=== PATIENT | female | born 1935 | race Caucasian/White ===

== ENCOUNTER 2025-06-08 08:21 | Inpatient (IN) | payer MEDICARE ==
[~2025-06-08] VITALS: Ht 152.4 cm; Wt 37.2 kg
--- NOTE | 2025-06-08 08:51 | NUR ---
PT TO CT
[2025-06-08 09:12] LABS: IMMATURE GRANULOCYTE ABSOLUTE 0.07 K/uL (0-1); NUCLEATED RED BLOOD CELLS 0.0 % (0.0-0.19); PLATELET COUNT (AUTO) 248 K/uL (130-400); RED BLOOD CELL COUNT(AUTO) 4.27 MIL/uL (4.00-5.50); RED CELL DISTRIBUTION WIDTH 12.1 % (11.0-15.5); WHITE BLOOD COUNT (AUTO) 13.3 K/uL (4.8-10.8)
[2025-06-08 09:20] LABS: CREATININE 1.3 mg/dL (0.5-1.0); GLOMERULAR FILTR. RATE CALC 39.0 mL/min (>90); GLUCOSE,RANDOM 202.0 mg/dL (70-105); SODIUM SERUM 137.0 mmol/L (136-145); UREA NITROGEN, BLOOD 21.0 mg/dL (7-18)
[2025-06-08 09:21] LABS: INR 1.04 (0.85-1.15)
[2025-06-08 09:25] LABS: CREATINE KINASE, TOTAL 78.0 U/L (21-232)
--- NOTE | 2025-06-08 09:38 | HMCIMG ---
EXAM: CT Head Without IV contrast. CLINICAL HISTORY: fall TECHNIQUE: Axial computed tomography images of the head/brain without intravenous contrast. COMPARISON: None provided. FINDINGS: BRAIN: White matter hypodensities left parietal lobe, asymmetric, likely representing chronic small vessel ischemic disease. Velazquez white matter differentiation is preserved in this region. No evidence of intracranial hemorrhage, midline shift or parenchymal herniation. VENTRICLES: No hydrocephalus. ORBITS: The orbits are unremarkable. SINUSES AND MASTOIDS: The paranasal sinuses and mastoid air cells are clear. BONES: No fracture. SOFT TISSUES: Unremarkable. IMPRESSION: No evidence of intracranial hemorrhage. White matter hypodensities left parietal lobe, asymmetric, likely representing chronic small vessel ischemic disease. Velazquez white matter differentiation is preserved in this region. /[place]
--- NOTE | 2025-06-08 09:48 | NUR ---
PATIENT'S NIECE JUST PROVIDED DR GALDAMEZ PATIENT'S MEDICATION LIST THAT HAS PLAVIX ON IT.NIECE CONFIRMED PATIENT TAKES THE MEDIACTION, HOWEVER IT WAS NOT MENTIONED TO EMS OR TRIAGE.
--- NOTE | 2025-06-08 10:14 | HMCIMG ---
EXAM: CR left Hip, 3 View. CLINICAL HISTORY: fall COMPARISON: None provided. FINDINGS: BONES: Comminuted left intertrochanteric fracture JOINTS: No dislocation. The joint spaces are normal. SOFT TISSUES: The soft tissues are unremarkable. IMPRESSION: Comminuted left intertrochanteric fracture /[place]
--- NOTE | 2025-06-08 10:15 | HMCIMG ---
EXAM: CT Pelvis without IV contrast CLINICAL HISTORY: fall TECHNIQUE: Axial computed tomography images of the pelvis without intravenous contrast. CONTRAST: without intravenous contrast. COMPARISON: None provided. FINDINGS: PERITONEUM: No free fluid. No free air. LYMPH NODES: No lymphadenopathy is evident. REPRODUCTIVE: Unremarkable as visualized. VASCULATURE: No evidence of abdominal aortic aneurysm. BONES: Comminuted minimally displaced left intertrochanteric fracture. IMPRESSION: Comminuted minimally displaced left intertrochanteric fracture. Moderate stool burden throughout the colon. /[place]
[2025-06-08] MEDS ORDERED: GLUCAGON 1MG KIT 1 MG ML IM PRN (10:30)
[2025-06-08] MEDS ORDERED: DEXTROSE 50%-WATER 50 ML DISP.SYRIN IV PRN (10:30)
[2025-06-08 10:43] VITALS: RESP 18; O2SAT 98
[2025-06-08 10:45] LABS: ASPARTATE AMINOTRANSFERASE 30.0 U/L (10-37); TOTAL PROTEIN, SERUM 7.4 g/dL (6.0-8.3)
--- NOTE | 2025-06-08 11:12 | ERN ---
ED Note History of Present Illness Stated Complaint: S/P FALL, LEFT HIP FRACTURE, FRAILT Chief Complaint: Mechanical Fall Time Seen by MD: 08:28 Dictation: 89-year-old female presenting to the emergency department for mechanical fall and left hip pain unable to ambulate transported by EMS. Patient denies any loss of consciousness no chest pain or shortness a breath. Allergies: Coded Allergies: No Known Drug Allergies (Unverified Allergy, Unknown, 06/08/25) Past Medical History Past Medical History: CVA, Hypertension Surgical History: None Review of System Dictation Constitutional: Negative for fever,chills, and weight loss Eyes: Negative for injury, pain,redness, and discharge ENT: Negative for injury,pain or swelling Cardiovascular: Negative for chest pain, palpitations, and edema Respiratory: Negative for shortness of breath, cough, and wheezing, Abdomen/GI: Negative for abdominal pain, nausea, vomiting, diarrhea, and constipation Back: Negative for injury and pain : Negative for injury, bleeding and discharge MS/Extremity: Per HPI Psych: Negative for suicide ideation, homicidal ideation, and hallucinations Initial Vital Sign VS Vital Signs Date Time Temp Pulse Resp B/P (MAP) Pulse Ox O2 Delivery O2 Flow Rate FiO2 06/08/25 08:27 97.9 102 16 152/78 98 0 06/08/25 09:45 Room Air* 21 Physical Exam Dictation General: awake, alert uncomfortable Head/Face: Normocephalic, atraumatic Eyes: PERRL, EOMI, vision at baseline ENT: oral cavity clear, TMs clear, no signs of infection Neck: Trachea midline, supple, no nuchal rigidity Cardiovascular: RRR, normal S1/S2, No MRGs, no JVD Respiratory: CTAB, no respiratory distress, No rales or wheezes Abdomen: Soft, non-tender, non-distended, normal bowel sounds, no guarding or rebound. Skin: Warm, dry, normal turgor, no rash MS/Extremity: Pulses equal, no cyanosis, neurovascular intact, left hip tenderness to palpation unable to range Neuro: COAx4, GCS 15, strength 5/5, CN 2-12 intact, normal cerebellar exam, normal gait, Psych: Normal behavior, mood, and affect normal Results (Laboratory/Radiology) Laboratory/Radiology Laboratory Tests Test 06/08/25 08:45 White Blood Count 13.3 K/uL (4.8-10.8) H Red Blood Count 4.27 MIL/uL (4.00-5.50) Hemoglobin 13.6 g/dL (12.0-16.0) Hematocrit 41.6 % (36-48) Mean Corpuscular Volume 97.4 fL (79-99) Mean Corpuscular Hemoglobin 31.9 pg (27.0-33.0) Mean Corpuscular Hemoglobin Concent 32.7 g/dL (32.0-36.0) Red Cell Distribution Width 12.1 % (11.0-15.5) Platelet Count 248 K/uL (130-400) Mean Platelet Volume 11.2 fL (7.5-10.5) H Immature Granulocyte % (Auto) 0.5 % (0-1) Neutrophils (%) (Auto) 79.8 % (40.0-77.0) H Lymphocytes (%) (Auto) 10.2 % (21.0-51.0) L Monocytes (%) (Auto) 7.0 % (3.0-13.0) Eosinophils (%) (Auto) 1.7 % (0.0-8.0) Basophils (%) (Auto) 0.8 % (0.0-5.0) Neutrophils # (Auto) 10.6 K/uL (1.8-7.7) H Lymphocytes # (Auto) 1.4 K/uL (1.0-4.8) Monocytes # (Auto) 0.9 K/uL (0.1-1.0) Eosinophils # (Auto) 0.22 K/uL (0.00-0.70) Basophils # (Auto) 0.10 K/uL (0.00-0.20) Absolute Immature Granulocyte (auto 0.07 K/uL (0-1) Nucleated Red Blood Cells 0.0 % (0.0-0.19) Prothrombin Time 11.0 SEC (9.6-11.6) Prothromb Time International Ratio 1.04 (0.85-1.15) Activated Partial Thromboplast Time 22.5 SEC (26.3-35.5) L Sodium Level 137 mmol/L (136-145) Potassium Level 4.7 mmol/L (3.5-5.1) Chloride Level 103 mmol/L (101-111) Carbon Dioxide Level 26 mmol/L (21-32) Blood Urea Nitrogen 21 mg/dL (7-18) H Creatinine 1.3 mg/dL (0.5-1.0) H Glomerular Filtration Rate Calc 39 mL/min (>90) Random Glucose 202 mg/dL (70-105) H Hemoglobin A1c 6.7 % (4.0-6.0) H Estimated Average Glucose (eAG) 146 mg/dL (70-126) H Total Calcium 9.5 mg/dL (8.5-10.1) Magnesium Level 1.50 mg/dL (1.80-2.40) L Total Bilirubin 0.6 mg/dL (0.2-1.0) Direct Bilirubin 0.2 mg/dL (0.0-0.3) Aspartate Amino Transf (AST/SGOT) 30 U/L (10-37) Alanine Aminotransferase (ALT/SGPT) 25 U/L (12-78) Alkaline Phosphatase 68 U/L (50-136) Total Creatine Kinase 78 U/L (21-232) Troponin I High Sensitivity 36 ng/L (4-50) B-Type Natriuretic Peptide 105 pg/mL (0-100) H Total Protein 7.4 g/dL (6.0-8.3) Albumin 4.1 g/dL (3.5-5.0) Thyroid Stimulating Hormone (TSH) 4.04 uIU/mL (0.36-3.74) H Labs Reviewed?: Yes EKG: (+) NSR, (+) rhythm, (+) nonspecific ST T wave chg, (+) abnormal Q waves ED Course ED Course Orders Procedure Category Date Status Time 12 Lead Ekg Tracing- EKG 06/08/25 Logged Technical 08:29 Basic Metabolic Panel LAB 06/08/25 Complete 08: Cbc With Differential LAB 06/08/25 Complete 08: Pt And Ptt LAB 06/08/25 Complete 08: Troponin I High LAB 06/08/25 Complete Sensitivity 08:29 Urinalysis Profile LAB 06/08/25 Logged 08: Creatine Kinase, Total LAB 06/08/25 Complete 08:29 Chest 1vw RAD 06/08/25 Taken 08: Hip Unilat 2-3vw Left RAD 06/08/25 Resulted 08:29 Ct Head/Brain W/O CT 06/08/25 Resulted Contrast 08:29 Ct Pelvis W/O Contrast CT 06/08/25 Resulted 08:29 Morphine 4mg Syg PHA 06/08/25 Complete (Morphine 4mg Syg) 09:03 Ondansetron 4mg Inj PHA 06/08/25 Complete (Zofran 4mg Inj) 09:03 Nurse Driven Denney SARA 06/08/25 In Process Removal Pro 09:03 Admit Orders ADM 06/08/25 Transmitted 10:00 12 Lead Ekg Tracing- EKG 06/08/25 Logged Technical 10:00 Hydromorphone 0.5mg PHA 06/08/25 In Process Syg (Dilaudid 0.5mg 10:30 Hepatic Function Panel LAB 06/08/25 Complete 10:03 Hemoglobin A1c LAB 06/08/25 Complete 10:03 Thyroid Stimulating LAB 06/08/25 Complete Hormone 10:03 Magnesium LAB 06/08/25 Complete 10:03 Type And Screen BBK 06/08/25 Logged 10:03 Acetaminophen 500mg PHA 06/08/25 In Process Tab (Tylenol 500mg T 10:30 Urinalysis Profile LAB 06/08/25 Logged 10:04 Telemetry Monitoring CPOE 06/08/25 Transmitted 10:04 M.V.I. Iv [Adult] PHA 06/08/25 In Process (M.V.I. Iv [Adult])... 10:30 Case Management CM 06/08/25 Transmitted Evaluation 10:05 Cardiology Consult CONPHYSVC 06/08/25 Transmitted 10:05 Scd Both Legs While CPOE 06/08/25 Transmitted In Bed 10:05 Initiate SARA 06/08/25 In Process Hyperglycemia Protoco 10:05 Insulin Regular, PHA 06/08/25 In Process Human 3ml (Humulin R 11:30 Initiate Hypoglycemia SARA 06/08/25 In Process Protocol 10:05 Dextrose 50%-Water PHA 06/08/25 In Process (D50w) 10:30 Glucagon 1mg Kit PHA 06/08/25 In Process (Glucagon 1mg Kit) 10:30 Ondansetron 4mg Inj PHA 06/08/25 In Process (Zofran 4mg Inj) 10:30 Ipratropium/Albuterol PHA 06/08/25 In Process Neb (Duoneb) 10:30 Famotidine 20mg Vial PHA 06/08/25 In Process (Pepcid 20mg Vial) 21:00 *Nursing CPOE 06/08/25 Transmitted Communication: 10:05 Hydralazine 20mg Inj PHA 06/08/25 In Process (Apresoline 20mg In 10:30 Eval Request For DIETOTHR 06/08/25 Transmitted Dietitian 10:05 B-Type Natriuretic LAB 06/08/25 Complete Peptide 10:09 Echo 2-D Complete ECHO 06/08/25 Logged 10:10 Multivitamin Tablet PHA 06/09/25 In Process (Multivitamin Tablet 09:00 Orthopedic Consult CONPHYSVC 06/08/25 Transmitted 10:12 Gi Soft/[place] Diet DIET 06/08/25 Transmitted Lunch Npo After Midnight SARA 06/08/25 Transmitted 10:12 Cbc With Differential LAB 06/09/25 Verified 04:00 Comprehensive LAB 06/09/25 Verified Metabolic Panel 04:00 Fall Precautions CPOE 06/08/25 Transmitted 10:14 Aspiration Precautions CPOE 06/08/25 Transmitted 10:14 Polyethylene Glycol PHA 06/08/25 In Process 3350 (Miralax 3350 1 11:00 Magnesium 2gm Premix PHA 06/08/25 In Process 50ml (Magnesium 2gm 11:00 Current Medications Medications (Trade) Dose Ordered Sig/Raegan Route PRN Reason Start Time Stop Time Status Last Admin Dose Admin Morphine Sulfate (morPHINE 4MG SYG) 4 mg ONCE STAT IVP 06/08/25 09:03 06/08/25 10:00 DC Ondansetron HCl (zoFRAN 4MG INJ) 4 mg ONCE STAT IVP 06/08/25 09:03 06/08/25 09:07 DC Vital Signs Date Time Temp Pulse Resp B/P (MAP) Pulse Ox O2 Delivery O2 Flow Rate FiO2 06/08/25 10:43 18 N/A Room Air 06/08/25 09:45 100 18 137/91 98 Room Air* 0 06/08/25 08:27 97.9 102 16 152/78 98 0 Medical Decision Making MDM MDM: Differential diagnosis: Rationale: Tests considered and ordered secondary to shared decision making in clude: labs, ECG and radiology Previous outside records reviewed: Old ER visits. Risk of complication and/or morbidity or mortality of patient management: None Medications-Per medication reconciliation Need for hospitalization: Patient does meet criteria for hospitalization. Need for emergency major/minor surgery: No There are no social concerns with this patient. Prescription drug management Prescriptions will include symptomatic care Patient's prior external medical records from other ER visits were reviewed by me as indicated. Prior testing and results from previous visits were reviewed. Prior tests were taken into account with medical decision making and resource utilization, independent historian/historians were used to obtain complete medical history. I independently interpreted the test that were performed, results were reviewed by me and considered findings on radiology if ordered. Medical management and examination interpretation discussions were had by me with other qualified healthcare professionals as indicated for the patient's care. 89-year-old female with ground level fall left hip fracture isolated injury CT of the head negative, patient vital signs stable closed neurovascularly intact distally consulted Orthopedics who saw and evaluated patient at bedside admitting to Medicine for further care and evaluation and orthopedic repair. DX & DISP Disposition: Inpatient Departure Impression: Primary Impression: Fall Additional Impressions: Hip fracture, left, Intertrochanteric fracture of left femur Condition: Stable Referrals: ALISON LEGGETT MD (PCP) RODRIGUEZ HUMPHREY MD Jun 08, 2025 11:12
--- NOTE | 2025-06-08 11:16 | HMCIMG ---
EXAM: CR Chest, 1 View. CLINICAL HISTORY: fall COMPARISON: None provided. FINDINGS: LUNGS: The lungs show no infiltrate or other acute finding. PLEURAL SPACES: No evidence of pleural effusion or pneumothorax. MEDIASTINUM: The cardiomediastinal silhouette is within normal limits. BONES: No aggressive appearing osseous lesion seen. IMPRESSION: No acute cardiopulmonary pathology is evident. /[place]
[2025-06-08] MEDS: MAGNESIUM 2GM PREMIX 50ML 50 ML IV SCH (11:17)
[2025-06-08 11:18] VITALS: TEMP 97.9
--- NOTE | 2025-06-08 11:18 | HP ---
[facility] HISTORY [facility] PHYSICAL Date of Service: Jun 08, 2025 Time of Service: 11:04 HISTORY OF PRESENT ILLNESS: Date of service: 06/08/2025, patient was seen in ER room 13 This is a frail 89-year-old female with history of hypertension, hypothyroidism, previous history of stroke about four years ago with residual right lower extremity and right upper extremity weakness, history of chronic outpatient therapy with Plavix who presented to the ER after a fall. Patient was in the kitchen today in her mobile when she accidentally tripped and fell. She landed on the left hip and since then, she has been having severe pain to the left hip. Pain is 10/10 in severity with any movement. Patient does not use a cane or walker to ambulate at home. She lives by herself and her niece checks on her frequently. She denies any history of [place]. She reports having history of mild murmur which has been followed by her PCP as outpatient. She denies any smoking or alcohol consumption. She last took Plavix yesterday. She has been taking Plavix since her stroke. She denies taking aspirin therapy as outpatient. On presentation to the hospital, patient was afebrile with T-max of 97.9 F, heart rate of 102, blood pressure of 152/78. Underwent further evaluation with CT of the pelvis which showed comminuted minimally displaced left intertrochanteric fracture. Without contrast showed no acute intracranial hemorrhage with chronic small- vessel ischemic disease. Patient will be admitted for further management of left hip fracture. Co nsultation with Dr. Alvares with Orthopedics has been requested. Patient will undergo cardiac optimization prior to surgery. Discussed with patient and family that she will need SNF versus rehab on discharge. REVIEW OF SYSTEMS CONSTITUTIONAL: reports having fall today with significant left hip pain NEUROLOGICAL: Denies headache, amaurosis fugax, motor weakness, sensory deficit, vertigo/spinning sensation, gait abnormalities, or tremors. ENT: No hearing loss, otalgia, otorrhea, rhinitis, rhinorrhea, hoarseness, or sore throat. CARDIOVASCULAR: reports having chronic murmur PULMONARY: Denies any shortness of breath, cough, phlegm/sputum, hemoptysis, pleuritic chest pain. SLEEP: Denies morning headaches, daytime somnolence or napping. Denies difficulty falling asleep, staying asleep, waking from sleep. Denies knowledge of snoring. GASTROINTESTINAL: Denies any type of dysphagia to either liquids or solids. Denies nausea, vomiting, pyrosis, early satiety, abdominal pain, diarrhea, constipation, or changes in stool consistency or caliber. Denies coffee-ground emesis, hematemesis, hematochezia, or melanotic stools. GENITOURINARY: Denies frequency, urgency, nocturia, hematuria or incontinence (Storage/Irritative symptoms.) Low urinary stream, straining to void, urinary intermittency or hesitancy, splitting of the voiding stream, terminal dribbling. ENDOCRINOLOGIC: Denies polyuria, polydipsia, polyphagia or heat/cold intolerances. HEMATOLOGIC: Denies thrombophilia/previous clots, or coagulopathy/bleeding disorders. ONCOLOGIC: Denies personal history of malignancy. DERMATOLOGIC: Denies rashes or pruritus. PSYCHIATRIC: Denies any suicidal or homicidal ideation. Denies hallucinations. PAST MEDICAL HISTORY: Hypertension, type 2 diabetes mellitus, hypothyroidism, history of stroke about four years ago maintained on chronic antiplatelet therapy with Plavix PAST SURGICAL HISTORY: History of hysterectomy and salpingo-oophorectomy PAST SOCIAL HISTORY: Denies active smoking or alcohol consumption, lives alone at mobile home and her niece checks on her frequently FAMILY HISTORY: Denies pertinent family history Allergies: No known drug allergies Home medications: Knees will be bringing list of home medications, patient has been maintained on lisinopril 20 mg daily, Plavix 75 mg daily, she is on Jardiance and Synthroid as well Coded Allergies: No Known Drug Allergies (Unverified Allergy, Unknown, 06/08/25) morphine (Verified Adverse Reaction, Intermediate, vomiting, 06/08/25) PHYSICAL EXAM GENERAL APPEARANCE: The patient is awake, alert, and oriented, elderly and frail NEUROLOGICAL: Cranial nerves II-XII grossly intact. Motor is 5/5 in bilateral upper and lower extremities proximal to distal. No sensory deficits. HEENT: Face is symmetric. Pupils are equal and reactive. Extraocular movements are intact. NECK: Supple. No JVD. No thyromegaly. No submental, submandibular, pre- /postauricular, occipital or supraclavicular lymphadenopathy. CHEST: Normal chest expansion. No Telemetry. LUNGS: Absence of any rales, rhonchi or any wheezing. CARDIOVASCULAR: Regular. S1 and S2 normal. audible murmur noted, 3/6 involving the RUSB ABDOMEN: Soft, nontender, and nondistended. There is no rebound, voluntary gua rding, or rigidity. : Deferred. No Denney. EXTREMITIES: Non-edematous and not cyanotic. His externally rotated and abducted, pain and tenderness to palpation of the left hip SKIN: No skin breakdown. Vital Sign (Last 24 Hours) 06/08/25 06/08/25 06/08/25 08:27 09:45 10:43 Temp 97.9 Pulse 100 Resp 18 B/P (MAP) 137/91 Pulse Ox 98 O2 Delivery N/A Room Air O2 Flow Rate 0 FiO2 21 LABS: Laboratory: Test 06/08/25 08:45 Range/Units White Blood Count 13.3 H 4.8-10.8 K/uL Red Blood Count 4.27 4.00-5.50 MIL/uL Hemoglobin 13.6 12.0-16.0 g/dL Hematocrit 41.6 36-48 % Mean Corpuscular Volume 97.4 79-99 fL Mean Corpuscular Hemoglobin 31.9 27.0-33.0 pg Mean Corpuscular Hemoglobin Concent 32.7 32.0-36.0 g/dL Red Cell Distribution Width 12.1 11.0-15.5 % Platelet Count 248 130-400 K/uL Mean Platelet Volume 11.2 H 7.5-10.5 fL Immature Granulocyte % (Auto) 0.5 0-1 % Neutrophils (%) (Auto) 79.8 H 40.0-77.0 % Lymphocytes (%) (Auto) 10.2 L 21.0-51.0 % Monocytes (%) (Auto) 7.0 3.0-13.0 % Eosinophils (%) (Auto) 1.7 0.0-8.0 % Basophils (%) (Auto) 0.8 0.0-5.0 % Neutrophils # (Auto) 10.6 H 1.8-7.7 K/uL Lymphocytes # (Auto) 1.4 1.0-4.8 K/uL Monocytes # (Auto) 0.9 0.1-1.0 K/uL Eosinophils # (Auto) 0.22 0.00-0.70 K/uL Basophils # (Auto) 0.10 0.00-0.20 K/uL Absolute Immature Granulocyte (auto 0.07 0-1 K/uL Nucleated Red Blood Cells 0.0 0.0-0.19 % Prothrombin Time 11.0 9.6-11.6 SEC Prothromb Time International Ratio 1.04 0.85-1.15 Activated Partial Thromboplast Time 22.5 L 26.3-35.5 SEC Sodium Level 137 136-145 mmol/L Potassium Level 4.7 3.5-5.1 mmol/L Chloride Level 103 101-111 mmol/L Carbon Dioxide Level 26 21-32 mmol/L Blood Urea Nitrogen 21 H 7-18 mg/dL Creatinine 1.3 H 0.5-1.0 mg/dL Glomerular Filtration Rate Calc 39 >90 mL/min Random Glucose 202 H 70-105 mg/dL Hemoglobin A1c 6.7 H 4.0-6.0 % Estimated Average Glucose (eAG) 146 H 70-126 mg/dL Total Calcium 9.5 8.5-10.1 mg/dL Magnesium Level 1.50 L 1.80-2.40 mg/dL Total Bilirubin 0.6 0.2-1.0 mg/dL Direct Bilirubin 0.2 0.0-0.3 mg/dL Aspartate Amino Transf (AST/SGOT) 30 10-37 U/L Alanine Aminotransferase (ALT/SGPT) 25 12-78 U/L Alkaline Phosphatase 68 50-136 U/L Total Creatine Kinase 78 21-232 U/L Troponin I High Sensitivity 36 4-50 ng/L B-Type Natriuretic Peptide 105 H 0-100 pg/mL Total Protein 7.4 6.0-8.3 g/dL Albumin 4.1 3.5-5.0 g/dL Thyroid Stimulating Hormone (TSH) 4.04 H 0.36-3.74 uIU/mL Current Medications Medications (Trade) Dose Ordered Sig/Raegan Route PRN Reason Start Time Stop Time Status Last Admin Dose Admin Acetaminophen (TYLenol 500MG TAB) 500 mg Q8H PO 06/08/25 10:30 07/08/25 10:29 Albuterol (DUOneb) 1 udvial Q6H PRN IH SHORTNESS OF BREATH 06/08/25 10:30 07/08/25 10:29 Dextrose (D50w) 50 ml AD PRN IV HYPOGLYCEMIA PROTOCOL 06/08/25 10:30 07/08/25 10:29 Famotidine (Pepcid 20mg Vial) 20 mg Q48H IV 06/08/25 21:00 07/08/25 20:59 Glucagon (Glucagon 1mg Kit) 1 mg AD PRN IM HYPOGLYCEMIA PROTOCOL 06/08/25 10:30 07/08/25 10:29 Hydralazine HCl (APRESOLine 20MG INJ) 5 mg Q6H PRN IV ADMINISTER FOR SBP > 160 06/08/25 10:30 07/08/25 10:29 Hydromorphone HCl (DiLAUDid 0.5MG INJ) 0.2 mg Q4H PRN IVP SEVERE PAIN (7-10) 06/08/25 10:30 06/13/25 10:29 Insulin Human Regular (humuLIN R 100 UNIT/ML 3ML) INSULIN SLIDING SCAL... ACHS SQ 06/08/25 11:30 07/08/25 11:29 Magnesium Sulfate 50 ml @ 0 mls/hr PROTOCOL IV 06/08/25 11:00 07/08/25 10:59 Morphine Sulfate (morPHINE 4MG SYG) 4 mg ONCE STAT IVP 06/08/25 09:03 06/08/25 10:00 DC Multivitamins Therapeutic (Multivitamin Tablet) 1 tab DAILY PO 06/09/25 09:00 07/09/25 08:59 Multivitamins/ Minerals 10 ml/ Folic Acid 1 mg/ Thiamine HCl 100 mg/Sodium Chloride 1,010 ml @ 50 mls/hr Q24H IV 06/08/25 10:30 06/11/25 06:41 Ondansetron HCl (zoFRAN 4MG INJ) 4 mg ONCE STAT IVP 06/08/25 09:03 06/08/25 09:07 DC Ondansetron HCl (zoFRAN 4MG INJ) 4 mg Q6H PRN IVP NAUSEA/VOMITING 06/08/25 10:30 07/08/25 10:29 Polyethylene Glycol (MIRalax 3350 17 GM POWD.PACK) 17 gm DAILY PRN PO constipation 06/08/25 11:00 07/08/25 10:59 DIAGNOSTICS / RADIOLOGY: SERVICE 8 REASON: fall ORDERING PHYSICIAN: RODRIGUEZ HUMPHREY MD PROCEDURE: PELVIS WO - CT PELVIS W/O CONTRAST EXAM: CT Pelvis without IV contrast CLINICAL HISTORY: fall TECHNIQUE: Axial computed tomography images of the pelvis without intravenous contrast. CONTRAST: without intravenous contrast. COMPARISON: None provided. FINDINGS: PERITONEUM: No free fluid. No free air. LYMPH NODES: No lymphadenopathy is evident. REPRODUCTIVE: Unremarkable as visualized. VASCULATURE: No evidence of abdominal aortic aneurysm. BONES: Comminuted minimally displaced left intertrochanteric fracture. IMPRESSION: Comminuted minimally displaced left intertrochanteric fracture. Moderate stool burden throughout the colon. /[place]road DICTATED BY: EDDIE ANGELO DO DATE: 06/08/251113 ELECTRONICALLY SIGNED BY: EDDIE ANGELO DO DATE: 06/08/251113 ASSESSMENT: Status post mechanical fall with comminuted minimally displaced left hip intertrochanteric fracture, POA Underweight with severe protein calorie malnutrition, POA Frailty/debility, POA Prior history of stroke with residual right-sided weakness, POA History of chronic antiplatelet therapy with Plavix as outpatient, POA Hypertension, POA Hypothyroidism, POA Osteoporosis, POA History of type 2 diabetes mellitus, POA CKD stage 3, POA Hypomagnesemia, POA Leukocytosis, POA Hx of cardiac murmur, POA PLAN: Patient will be admitted to medical-surgical floor under telemetry monitoring Patient was seen by Dr. Alvares with Orthopedics with tentative plans for orthopedic fixation of the left hip fracture for tomorrow Consultation with Dr. Kirby requested for preoperative cardiac optimization prior to surgery tomorrow 2D echocardiogram will be obtained We will start pain control with scheduled Tylenol, IV hydromorphone in case of severe pain, avoid any NSAID therapy on this patient due to patient being underweight, history of chronic Plavix use, to reduce risk of gastritis/gastric ulcer with GI bleed We will start patient on gentle hydration with banana bag at 50 mls/h Denney catheter will be placed due to urinary retention, urinalysis will be sent to rule out UTI Case management consultation will be requested for SNF versus rehab on discharge Patient will be placed on bedrest today Home medications will be reconciled and updated including antihypertensives, patient will be placed on sliding scale insulin a.c. and HS, electrolytes will be aggressively repleted Plavix will be placed on hold in anticipation of surgery tomorrow We will keep patient on SCDs for DVT prophylaxis, prophylaxis with Pepcid We will monitor closely for signs of bleeding, all labs will be repeated in the morning, we will anticipate hospitalization for at least 72 hours Prognosis: Guarded Plan of care was discussed with patient and niece at bedside, Joey Lu MD Advanced Care Planning: Which of the following were discussed: Hospice care: Yes __ No _x_ Therapeutic options: Yes _x_ No __ Advance directives: Yes _x_ No __ Other discussions: Discussed with who?: Patient Voluntary nature of this service was explained to the patient? Yes _x_ No __ Amount of time spent: 20 minutes JOEY LU MD Jun 08, 2025 11:18
--- NOTE | 2025-06-08 11:45 | NUR ---
arrival PT ARRIVED TO ROOM 304. A&OX4. NON LABORED BREATHING. LIMITED MOVEMENT. REPORTS FALL THIS MORNING AT HOME. NIECE AT BEDSIDE. BED LOWERED AND LOCKED. CALL LIGHT TO REACH. BED ALARM ON.
[2025-06-08 11:50] VITALS: BP 139/85; PULSE 99; RESP 16; TEMP 97.8
[2025-06-08 11:56] LABS: APPEARANCE,URINE CLEAR (CLEAR); GLUCOSE, URINE (UA) >=1000 mg/dL (NEGATIVE); LEUKOCYTE ESTERASE ,URINE NEGATIVE Leu/uL (NEGATIVE); NITRATE,URINE NEGATIVE (NEGATIVE); OCCULT BLOOD,URINE NEGATIVE (NEGATIVE)
[2025-06-08 11:57] LABS: ADD UA MICROSCOPIC YES
[2025-06-08 12:00] VITALS: O2SAT 98
[2025-06-08] MEDS ORDERED: EMPA10TA PO (12:28)
[2025-06-08] MEDS ORDERED: CLOP75TA32 PO (12:28)
[2025-06-08] MEDS ORDERED: FLUT16H NS (12:28)
[2025-06-08] MEDS ORDERED: LEVO88CA5 PO (12:28)
[2025-06-08] MEDS ORDERED: LISI20TA24 PO (12:28)
[2025-06-08] MEDS ORDERED: CHOL500051 PO (12:30)
--- NOTE | 2025-06-08 13:53 | CONS ---
CONSULT NOTE: CARDIOLOGY Reason for consult: Preop evaluation HPI/story at presentation: This is a pleasant 89-year-old female with past medical history present with complaints of a fall, mechanical and is being evaluated for surgery. Cardiology was consulted for further evaluation and management. Past medical history: See below Allergies, Meds See chart Review of systems Review of Systems Constitutional: Negative for chills and fever. HENT: Negative for ear discharge and ear pain. Eyes: Negative for photophobia and discharge. Respiratory: Negative for cough, sputum production and stridor. Cardiovascular: Negative for chest pain and palpitations. Gastrointestinal: Negative for diarrhea and vomiting. Genitourinary: Negative for frequency. Musculoskeletal: Negative for myalgias. Skin: Negative for rash. Neurological: Negative for focal weakness and seizures. Endo/Heme/Allergies: Negative for polydipsia. Psychiatric/Behavioral: Negative for hallucinations. Vitals see chart PHYSICAL EXAMINATION GENERAL: The patient is alert and oriented*3 HEENT: Nonicteric sclerae, non traumatic HEART: Regular rate and rhythm with no murmurs LUNGS: Clear to auscultation bilaterally ABDOMEN: No acute issues, non tender GENITAL, RECTAL: deferred SKIN: No rash NEUROLOGIC: NFND EXTREMITIES: No edema ASSESSMENT MURMUR, PREOP EVALUATION The setting of a fall, needing surgery Mechanical fall at presentation HISTORY OF CVA Previous history of right-sided residual weakness On Plavix CHRONIC KIDNEY DISEASE HYPERTENSION, DIABETES CORE MEASURES Pending OTHER MEDICAL PROBLEMS Hypothyroidism Osteoporosis Hypomagnesemia PLAN 06/08/2025 patient with underlying murmur here with a fall, cardiology consult for preop evaluation. Echocardiogram has been ordered and completed. Processing is ongoing. If no significant findings on echo, likely intermediate risk upcoming procedure. Patient has reasonable baseline functional capacity. Seen and examined 06/08/2025 at around 2 PM. ATTESTATION I was involved substantially in the care of this patient Number and complexity of problems addressed: 1 acute illness with systemic featu res Amount and or complexity of data Review of prior external note(s) from each unique source: 2+ Ordering of each unique test : 1 Review of the result(s) of each unique test: 2+ Assessment requiring an independent historian(s): No Independent interpretation of test performed by another MD/QHCP/appropriate source (not separately reported) : No Discussion of management or test interpretation with external MD/QHCP/appropriate source (not separately reported) : No Risk status (cardiac, billing related): Moderate PREMA WHITE MD Jun 08, 2025 13:53
[2025-06-08] MEDS: M.V.I. IV [ADULT] 10 ML, FOLic ACID 5 MG/ML VIAL 1 MG, THIAMINE HCL 100 MG in 0.9%NACL ... IV SCH (15:27)
[2025-06-08 16:00] VITALS: BP 121/65; PULSE 87; RESP 16; TEMP 97.9
--- NOTE | 2025-06-08 19:34 | EKG ---
[facility] Test Date: 2025-06-08 Test Time: 10:08:31 Pat Name: ISAAC BARNETT Department: [facility] Room: 304 1 Gender: F Bar Roller: [id number] : 1935 Requested By: GABRIELA GALDAMEZ Order Number: [id number] Reading MD: Kiko Orourke Measurements Intervals [place] Rate: 94 P: 70 MT: 189 QRS: 88 QRSD: 67 T: 55 QT: 343 QTc: 430 Interpretive Statements Sinus rhythm Low voltage, extremity leads No previous ECG available for comparison Electronically Signed On 06-08-2025 21:52:56 [employer] by Kiko Orourke Please click the below link to view image of tracing.
[2025-06-08 20:00] VITALS: BP 118/65; PULSE 83; RESP 16; TEMP 98.2; O2SAT 97
[2025-06-08] MEDS: FAMOTIDINE 20MG VIAL IV SCH (21:10)
[2025-06-08] MEDS: LISINOPRIL 10 MG TABLET PO SCH (21:10)
--- NOTE | 2025-06-08 23:43 | HMCSR ---
APPROVED REPORT EXAM: Two-dimensional and M-mode echocardiogram with Doppler and color Doppler. Study Details: HTN,HLD ,DM TIA INDICATION ICD: PRE OP , MURMUR 2D Dimensions RVDd 2.7 cm LVEF(%) 62.9 (>50%) IVSd 0.9 (0.7-1.1cm) FS(%) 33 % LVDd 3.3 (3.8-5.6cm) LA (2D) 3.1 (1.6-4.0cm) PWd 0.8 (0.7-1.1cm) Ao Root(2D) 2.7 (2.0-3.7cm) IVSs 1.0 cm LVOT diam 1.8 (1.8-2.4cm) LVDs 2.2 (2.5-4.0cm) PWs 1.0 cm Deformation Strain Apical 4 -17.4 % Apical 2 -14.4 % Apical 3 -11.4 % Global Strain -14.4 % M-Mode Dimensions EPSS 0.9 cm LA (MM) 3.1 (1.6-4.0cm) Ao Root(MM) 3.0 (2.0-3.7cm) Aortic Valve AoV Vmax 2.5 m/s Ao Peak GR 24.6 mmHg LVOT Vmax 1.4 m/s AoV VTI 0.4 m Ao Mean GR 14.2 mmHg LVOT VTI 0.22 m WHIT (VMAX) 1.45 cm2 WHIT (VTI) 1.5 cm2 Mitral Valve MV E Vmax 84.0 cm/s DECEL Time 286 ms MV A Vmax 165.0 cm/s P 1/2 T 82 ms E/A ratio 0.5 MVA (PHT) 2.7 cm2 TDI E/E' Medial 18.1 E/E' Lateral 15.0 Medial E' Peak V 4.64 cm/s Lateral E' Peak V 5.60 cm/s Pulmonary Valve PV Vmax 1.2 m/s PV Mean GR 3.2 mmHg PV Peak GR 6.1 mmHg Left Ventricle Left ventricular cavity is small. There is normal LV segmental wall motion. Apical hypertrophy is present. LVEF is 55% Stage I diastolic dysfunction. Right Ventricle The right ventricle is normal size. The right ventricular systolic function is normal. Atria The left atrium size is normal. The interatrial septum is intact with no evidence for an atrial septal defect. The right atrium size is normal. Aortic Valve Aortic valve is moderately calcified. No aortic regurgitation is present. There is Mild valvular aortic stenosis. Mitral Valve The mitral valve is mildly thickened. Moderate mitral annular calcification present. Mitral regurgitation is trace. There is no mitral valve stenosis. Mitral valve gradients however, were not measured Tricuspid Valve Tricuspid valve is not well visualized. Tace tricuspid regurgitation. Pulmonic Valve Pulmonic valve is not well visualized. There is no pulmonic valvular regurgitation. Great Vessels The aortic root is normal in size. The IVC is normal in size and collapses >50% with inspiration. Pericardium There is no pericardial effusion. Other Information Technically limited study due to body habitus. Conclusion LVEF is 55% Stage I diastolic dysfunction. Apical hypertrophy is present. Left ventricular cavity is small. There is normal LV segmental wall motion. Aortic valve is moderately calcified. There is Mild valvular aortic stenosis. The mitral valve is mildly thickened. Moderate mitral annular calcification present. Mitral valve gradients however, were not measured There is no pericardial effusion. Normal pulmonary pressures Study quality was adequate
[2025-06-09] VITALS (30 sets, daily range): BP systolic 100–171; BP diastolic 50–90; PULSE 62–110; RESP 15–18; TEMP 97.5–98.1; O2SAT 96–98
[2025-06-09 04:28] LABS: IMMATURE GRANULOCYTE ABSOLUTE 0.03 K/uL (0-1); NUCLEATED RED BLOOD CELLS 0.0 % (0.0-0.19); PLATELET COUNT (AUTO) 156 K/uL (130-400); RED BLOOD CELL COUNT(AUTO) 3.10 MIL/uL (4.00-5.50); RED CELL DISTRIBUTION WIDTH 12.2 % (11.0-15.5); WHITE BLOOD COUNT (AUTO) 9.4 K/uL (4.8-10.8)
[2025-06-09 05:03] LABS: ASPARTATE AMINOTRANSFERASE 29.0 U/L (10-37); CREATININE 1.1 mg/dL (0.5-1.0); GLOMERULAR FILTR. RATE CALC 48.0 mL/min (>90); GLUCOSE,RANDOM 128.0 mg/dL (70-105); SODIUM SERUM 138.0 mmol/L (136-145); TOTAL PROTEIN, SERUM 5.8 g/dL (6.0-8.3); UREA NITROGEN, BLOOD 23.0 mg/dL (7-18)
[2025-06-09] MEDS: MULTIVITAMIN TABLET PO SCH (08:11)
[2025-06-09] MEDS ORDERED: LIDOCAINE PF 100MG/5ML (2%) SYRINGE 5ML ONE (09:40)
[2025-06-09] MEDS ORDERED: NEOSTIGMINE METHYLSULFATE 1MG/ML IV ONE (09:41)
[2025-06-09] MEDS ORDERED: GLYCOPYRROLATE 0.2 MG/ML 5 ML VIAL ONE (09:41)
--- NOTE | 2025-06-09 09:52 | NUR ---
DCP:SNF SW spoke with [facility] (POJose Cruz) to gather information since pt was in a procedure. Pt currently lives alone in her home. Pt uses a cane and walker at home to assist ambulate. Niece denies any provider or home health services. Pt is able to complete ADLs independently. PCP is Enrique Saini and uses [facility] for any RX needs. At OR essence states that pt will need to go to a SNF, had one in mind however was waiting for the name to be recommended to her by a family friend (no consent obtained at this time).
[2025-06-09] MEDS ORDERED: LIDOCAINE HCL/EPINEPHRINE 30 ML VIAL IJ ONE (10:36)
--- NOTE | 2025-06-09 11:52 | NUR ---
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 non labored breathing. pt denies pain at this time. dressing to left hip dry and intact.
--- NOTE | 2025-06-09 13:17 | OP ---
DATE OF PROCEDURE: 06/09/2025 DATE OF OPERATION: 06/09/2025 PREOPERATIVE DIAGNOSIS: Unstable comminuted left intertrochanteric femur fracture. POSTOPERATIVE DIAGNOSIS: Unstable comminuted left intertrochanteric femur fracture. PROCEDURE PERFORMED: IM nail of the left femur using the [employer] Intertan System and fluoroscopy. SURGEON: Jose Alvares MD ANESTHESIA: General by YESSI Justice. SCRAP SAWYER: MILLICENT Torres. ESTIMATED BLOOD LOSS: Less than 100 mL. SPECIMENS: None. COMPLICATIONS: None. INDICATIONS FOR PROCEDURE: This 89-year-old female lost her balance and fell and injured her left hip. She was brought to the emergency room where she was diagnosed as having an intertrochanteric fracture of her left proximal femur. The patient was admitted. I was called for consultation. I recommended urgent open reduction and internal fixation, which she and her family accepted. OPERATIVE COURSE: After informed written consent and identification of the correct operative site in the preoperative holding area, the patient was taken to the operative suite and placed in supine position. General anesthetic was administered by Vinh DICKSON and the patient was transferred on the [place] table where traction and mild adduction was applied to obtain near anatomic alignment of the major fracture fragments. The left hip and thigh were then prepped and draped in the usual sterile manner using ChloraPrep and Ioban techniques. After a timeout, we made an extensile incision 5 cm above the greater trochanter taken through the subcutaneous tissue and deep fascia. Opened the deep fascia along its fibers. We placed a guide pin on the greater trochanter and passed across the fracture into the shaft checking AP and lateral views. We then overdrilled it with the all-in-one drill. We passed the guide maame and reamed up to a size 12 and passed a 10 x 125 short nail across the fracture into the shaft. We then made a second incision inferior to the greater trochanter, taken through subcutaneous tissue and deep fascia. Opened deep fascia along its fibers. I placed a guide pin up against the lateral cortex, passed it across the lateral cortex into the neck and head and measured to be 80 mm in length. We then made our anti-rotational starter hole and then our anti-rotational hole to 75 mm. We placed our anti-rotational bar and then drilled our sliding hip screw 80 mm. We then placed a self-tapping 80-mm sliding screw. We removed the anti-rotational bar and placed the anti-rotational screw relaxing traction and allowing it to compress slightly. Once this was completed, we made a third incision on the lateral side of the thigh in the static position. We placed the guide pins on the lateral cortex, drilled bicortically, and placed a 27.5 bicortical locking screw. Once that was completed, the initial guide was removed and radiographs were taken for the record. We irrigated all three wounds thoroughly with saline. We closed the two proximal wounds fascia with interrupted [id number] #0 Vicryl sutures. We closed the subcu with inverted interrupted 2-0 Vicryl sutures and the skin with skin clips. We applied clean, dry, sterile dressings to include Xeroform, 4 x 4s, and tape. The drapes were removed, the patient was transported to the hospital bed, revived, and taken to the recovery room in satisfactory condition. All needle count, sponge count, and instrument counts were correct. TID: [id number] RECEIPT: [id number]
--- NOTE | 2025-06-09 16:50 | HMCIMG ---
Intraoperative images were obtained for a left femur intramedullary nail. /[place]
--- NOTE | 2025-06-09 19:07 | PN ---
[facility] PROGRESS NOTE Date of Service: Jun 09, 2025 Time of Service: 19:06 SUBJECTIVE: [ ] This is a frail 89-year-old female with history of hypertension, hypothyroidism, previous history of stroke about four years ago with residual right lower e xtremity and right upper extremity weakness, history of chronic outpatient therapy with Plavix who presented to the ER after a fall. Patient was in the kitchen today in her mobile when she accidentally tripped and fell. She landed on the left hip and since then, she has been having severe pain to the left hip/ IM nailing today REVIEW OF SYSTEMS CONSTITUTIONAL: reports having fall today with significant left hip pain NEUROLOGICAL: Denies headache, amaurosis fugax, motor weakness, sensory deficit, vertigo/spinning sensation, gait abnormalities, or tremors. ENT: No hearing loss, otalgia, otorrhea, rhinitis, rhinorrhea, hoarseness, or sore throat. CARDIOVASCULAR: reports having chronic murmur PULMONARY: Denies any shortness of breath, cough, phlegm/sputum, hemoptysis, pleuritic chest pain. SLEEP: Denies morning headaches, daytime somnolence or napping. Denies difficulty falling asleep, staying asleep, waking from sleep. Denies knowledge of snoring. GASTROINTESTINAL: Denies any type of dysphagia to either liquids or solids. Denies nausea, vomiting, pyrosis, early satiety, abdominal pain, diarrhea, constipation, or changes in stool consistency or caliber. Denies coffee-ground emesis, hematemesis, hematochezia, or melanotic stools. GENITOURINARY: Denies frequency, urgency, nocturia, hematuria or incontinence (Storage/Irritative symptoms.) Low urinary stream, straining to void, urinary intermittency or hesitancy, splitting of the voiding stream, terminal dribbling. ENDOCRINOLOGIC: Denies polyuria, polydipsia, polyphagia or heat/cold intolerances. HEMATOLOGIC: Denies thrombophilia/previous clots, or coagulopathy/bleeding disorders. ONCOLOGIC: Denies personal history of malignancy. DERMATOLOGIC: Denies rashes or pruritus. PSYCHIATRIC: Denies any suicidal or homicidal ideation. Denies hallucinations. PHYSICAL EXAM GENERAL APPEARANCE: The patient is awake, alert, and oriented, elderly and frail NEUROLOGICAL: Cranial nerves II-XII grossly intact. Motor is 5/5 in bilateral upper and lower extremities proximal to distal. No sensory deficits. HEENT: Face is symmetric. Pupils are equal and reactive. Extraocular movements are intact. NECK: Supple. No JVD. No thyromegaly. No submental, submandibular, pre- /postauricular, occipital or supraclavicular lymphadenopathy. CHEST: Normal chest expansion. No Telemetry. LUNGS: Absence of any rales, rhonchi or any wheezing. CARDIOVASCULAR: Regular. S1 and S2 normal. audible murmur noted, 3/6 involving the RUSB ABDOMEN: Soft, nontender, and nondistended. There is no rebound, voluntary guarding, or rigidity. : Deferred. No Denney. EXTREMITIES: Non-edematous and not cyanotic. His externally rotated and ab ducted, pain and tenderness to palpation of the left hip SKIN: No skin breakdown. Vital Signs (last 8hr) Date Time Temp Pulse Resp B/P (MAP) Pulse Ox O2 Delivery O2 Flow Rate FiO2 06/09/25 19:02 71 18 N/A Room Air 21 06/09/25 17:52 110 17 156/90 99 Nasal Cannula 2.0 06/09/25 16:52 90 17 108/55 97 Nasal Cannula 2.0 06/09/25 15:52 99 18 124/72 97 Nasal Cannula 2.0 06/09/25 14:52 91 18 134/69 99 Nasal Cannula 2.0 06/09/25 13:52 67 17 110/52 99 Room Air 06/09/25 13:22 64 17 125/52 100 Nasal Cannula 2.0 06/09/25 12:52 62 18 110/60 100 Nasal Cannula 2.0 06/09/25 12:37 64 17 100/50 97 Nasal Cannula 2.0 06/09/25 12:22 65 18 119/59 99 Nasal Cannula 2.0 06/09/25 12:07 64 18 125/57 96 Nasal Cannula 2.0 06/09/25 11:52 80 17 148/82 98 Nasal Cannula 2.0 06/09/25 11:48 97.9 75 15 128/60 99 Nasal Cannula 3.0 06/09/25 11:43 78 16 124/58 99 Nasal Cannula 3.0 06/09/25 11:38 80 15 132/65 100 Nasal Cannula 3.0 06/09/25 11:33 81 15 134/59 99 Nasal Cannula 3.0 06/09/25 11:28 83 17 133/61 100 Nasal Cannula 3.0 06/09/25 11:23 85 16 138/67 100 Nasal Cannula 3.0 06/09/25 11:18 86 16 150/67 100 Nonrebreathing Mask 10.0 06/09/25 11:13 86 17 149/69 100 Nonrebreathing Mask 10.0 06/09/25 11:08 91 16 163/76 100 Nonrebreathing Mask 10.0 LABS: Laboratory: Test 06/09/25 15:38 06/09/25 04:17 06/08/25 10:40 06/08/25 08:45 Range/Units Whole Blood Glucose 153 H 70-110 MG/DL White Blood Count 9.4 # 4.8-10.8 K/uL Red Blood Count 3.10 #L 4.00-5.50 MIL/uL Hemoglobin 10.0 #L 12.0-16.0 g/dL Hematocrit 30.3 #L 36-48 % Mean Corpuscular Volume 97.7 79-99 fL Mean Corpuscular Hemoglobin 32.3 27.0-33.0 pg Mean Corpuscular Hemoglobin Concent 33.0 32.0-36.0 g/dL Red Cell Distribution Width 12.2 11.0-15.5 % Platelet Count 156 # 130-400 K/uL Mean Platelet Volume 10.9 H 7.5-10.5 fL Immature Granulocyte % (Auto) 0.3 0-1 % Neutrophils (%) (Auto) 71.4 40.0-77.0 % Lymphocytes (%) (Auto) 11.3 L 21.0-51.0 % Monocytes (%) (Auto) 15.7 H 3.0-13.0 % Eosinophils (%) (Auto) 0.7 0.0-8.0 % Basophils (%) (Auto) 0.6 0.0-5.0 % Neutrophils # (Auto) 6.7 1.8-7.7 K/uL Lymphocytes # (Auto) 1.1 1.0-4.8 K/uL Monocytes # (Auto) 1.5 H 0.1-1.0 K/uL Eosinophils # (Auto) 0.07 0.00-0.70 K/uL Basophils # (Auto) 0.06 0.00-0.20 K/uL Absolute Immature Granulocyte (auto 0.03 0-1 K/uL Nucleated Red Blood Cells 0.0 0.0-0.19 % White Cell Morphology Comment See comments Sodium Level 138 136-145 mmol/L Potassium Level 4.3 3.5-5.1 mmol/L Chloride Level 105 101-111 mmol/L Carbon Dioxide Level 26 21-32 mmol/L Blood Urea Nitrogen 23 H 7-18 mg/dL Creatinine 1.1 H 0.5-1.0 mg/dL Glomerular Filtration Rate Calc 48 >90 mL/min Random Glucose 128 H 70-105 mg/dL Total Calcium 8.2 L 8.5-10.1 mg/dL Magnesium Level 1.80 1.80-2.40 mg/dL Total Bilirubin 0.6 0.2-1.0 mg/dL Aspartate Amino Transf (AST/SGOT) 29 10-37 U/L Alanine Aminotransferase (ALT/SGPT) 23 12-78 U/L Alkaline Phosphatase 49 #L 50-136 U/L Total Protein 5.8 #L 6.0-8.3 g/dL Albumin 3.1 #L 3.5-5.0 g/dL Urine Color LIGHT-YELLOW YELLOW Urine Appearance CLEAR CLEAR Urine pH 6.0 5.0-8.0 Urine Specific [place] 1.017 1.001-1.031 Urine Protein 30 H NEGATIVE mg/dL Urine Glucose (UA) >=1000 H NEGATIVE mg/dL Urine Ketones NEGATIVE NEGATIVE mg/dL Urine Occult Blood NEGATIVE NEGATIVE Urine Nitrate NEGATIVE NEGATIVE Urine Bilirubin NEGATIVE NEGATIVE mg/dL Urine Urobilinogen 0.2 0.2-1.0 mg/dL Urine Leukocyte Esterase NEGATIVE NEGATIVE Kranthi/uL Urine RBC 0-1 0-1 /HPF Urine WBC 0-1 0-1 /HPF Urine Bacteria RARE None Seen /HPF Prothrombin Time 11.0 9.6-11.6 SEC Prothromb Time International Ratio 1.04 0.85-1.15 Activated Partial Thromboplast Time 22.5 L 26.3-35.5 SEC Hemoglobin A1c 6.7 H 4.0-6.0 % Estimated Average Glucose (eAG) 146 H 70-126 mg/dL Direct Bilirubin 0.2 0.0-0.3 mg/dL Total Creatine Kinase 78 21-232 U/L Troponin I High Sensitivity 36 4-50 ng/L B-Type Natriuretic Peptide 105 H 0-100 pg/mL Thyroid Stimulating Hormone (TSH) 4.04 H 0.36-3.74 uIU/mL Current Medications Medications (Trade) Dose Ordered Sig/Raegan Route PRN Reason Start Time Stop Time Status Last Admin Dose Admin Acetaminophen (TYLenol 500MG TAB) 500 mg Q8H PO 06/08/25 10:30 07/08/25 10:29 06/09/25 17:43 500 MG Albuterol (DUOneb) 1 udvial Q6H PRN IH SHORTNESS OF BREATH 06/08/25 10:30 07/08/25 10:29 Cefazolin Sodium (ANCEF 1 gm vial) 1 gm Q8H IVPB 06/09/25 18:30 06/10/25 02:31 06/09/25 17:43 1 GM Dextrose (D50w) 50 ml AD PRN IV HYPOGLYCEMIA PROTOCOL 06/08/25 10:30 07/08/25 10:29 Famotidine (Pepcid 20mg Vial) 20 mg Q48H IV 06/08/25 21:00 07/08/25 20:59 06/08/25 21:10 20 MG Fluticasone Propionate (FLOnase 50 mcg/ spray 16g bottle) 2 SPRAYS DAILY NS 06/09/25 09:00 07/09/25 08:59 Glucagon (Glucagon 1mg Kit) 1 mg AD PRN IM HYPOGLYCEMIA PROTOCOL 06/08/25 10:30 07/08/25 10:29 Home Med (Home Medication) (Cholecalciferol (Vitamin D3) 125MCG CAP) DAILY PO 06/09/25 09:00 07/09/25 08:59 Hydralazine HCl (APRESOLine 20MG INJ) 5 mg Q6H PRN IV ADMINISTER FOR SBP > 160 06/08/25 10:30 07/08/25 10:29 Hydromorphone HCl (DiLAUDid 0.5MG INJ) 0.2 mg Q4H PRN IVP SEVERE PAIN (7-10) 06/08/25 10:30 06/13/25 10:29 06/08/25 11:18 0.2 MG Insulin Human Regular (humuLIN R 100 UNIT/ML 3ML) INSULIN SLIDING SCAL... ACHS SQ 06/08/25 11:30 07/08/25 11:29 06/08/25 21:09 3 UNIT Levothyroxine Sodium (SYNTHroid 88MCG TAB) 88 mcg SYN PO 06/09/25 06:30 07/09/25 06:29 06/09/25 06:29 88 MCG Lisinopril (Prinivil 10mg) 10 mg BID PO 06/08/25 21:00 07/08/25 20:59 06/08/25 21:10 10 MG Magnesium Sulfate 50 ml @ 0 mls/hr PROTOCOL IV 06/08/25 11:00 07/08/25 10:59 06/08/25 11:17 25 MLS/HR Morphine Sulfate (morPHINE 4MG SYG) 4 mg ONCE STAT IVP 06/08/25 09:03 06/08/25 10:00 DC Multivitamins Therapeutic (Multivitamin Tablet) 1 tab DAILY PO 06/09/25 09:00 07/09/25 08:59 Multivitamins/ Minerals 10 ml/ Folic Acid 1 mg/ Thiamine HCl 100 mg/Sodium Chloride 1,010 ml @ 50 mls/hr Q24H IV 06/08/25 10:30 06/11/25 06:41 06/09/25 12:06 50 MLS/HR Ondansetron HCl (zoFRAN 4MG INJ) 4 mg ONCE STAT IVP 06/08/25 09:03 06/08/25 09:07 DC 06/08/25 11:17 4 MG Ondansetron HCl (zoFRAN 4MG INJ) 4 mg Q6H PRN IVP NAUSEA/VOMITING 06/08/25 10:30 07/08/25 10:29 Polyethylene Glycol (MIRalax 3350 17 GM POWD.PACK) 17 gm DAILY PRN PO constipation 06/08/25 11:00 07/08/25 10:59 DIAGNOSTICS / RADIOLOGY: [ ] ASSESSMENT: Status post mechanical fall with comminuted minimally displaced left hip intertrochanteric fracture, POA Underweight with severe protein calorie malnutrition, POA Frailty/debility, POA Prior history of stroke with residual right-sided weakness, POA History of chronic antiplatelet therapy with Plavix as outpatient, POA Hypertension, POA Hypothyroidism, POA Osteoporosis, POA History of type 2 diabetes mellitus, POA CKD stage 3, POA Hypomagnesemia, POA Leukocytosis, POA Hx of cardiac murmur, POA PLAN: Patient will be admitted to medical-surgical floor under telemetry monitoring Patient was seen by Dr. Alvares with Orthopedics with tentative plans for orthopedic fixation of the left hip fracture for tomorrow Consultation with Dr. Kirby requested for preoperative cardiac optimization prior to surgery tomorrow 2D echocardiogram will be obtained We will start pain control with scheduled Tylenol, IV hydromorphone in case of severe pain, avoid any NSAID therapy on this patient due to patient being underweight, history of chronic Plavix use, to reduce risk of gastritis/gastric ulcer with GI bleed We will start patient on gentle hydration with banana bag at 50 mls/h Denney catheter will be placed due to urinary retention, urinalysis will be sent to rule out UTI Case management consultation will be requested for SNF versus rehab on discharge Patient will be placed on bedrest today Home medications will be reconciled and updated including antihypertensives, patient will be placed on sliding scale insulin a.c. and HS, electrolytes will be aggressively repleted Plavix will be placed on hold in anticipation of surgery tomorrow We will keep patient on SCDs for DVT prophylaxis, prophylaxis with Pepcid We will monitor closely for signs of bleeding, all labs will be repeated in the morning, we will anticipate hospitalization for at least 72 hours Prognosis: Guarded Plan of care was discussed with patient and niece at bedside, Joey Lu MD Advanced Care Planning: Which of the following were discussed: Hospice care: Yes __ No _x_ Therapeutic options: Yes _x_ No __ Advance directives: Yes _x_ No __ Other discussions: Discussed with who?: Patient Voluntary nature of this service was explained to the patient? Yes _x_ No __ Amount of time spent: 20 minutes JUAN KAPLAN MD Jun 09, 2025 19:07
--- NOTE | 2025-06-09 21:59 | PN ---
CARDIOLOGY Reason for consult: Preop evaluation HPI/story at presentation: This is a pleasant 89-year-old female with past medical history present with complaints of a fall, mechanical and is being evaluated for surgery. Cardiology was consulted for further evaluation and management. Past medical history: See below Allergies, Meds See chart Review of systems Review of Systems Constitutional: Negative for chills and fever. HENT: Negative for ear discharge and ear pain. Eyes: Negative for photophobia and discharge. Respiratory: Negative for cough, sputum production and stridor. Cardiovascular: Negative for chest pain and palpitations. Gastrointestinal: Negative for diarrhea and vomiting. Genitourinary: Negative for frequency. Musculoskeletal: Negative for myalgias. Skin: Negative for rash. Neurological: Negative for focal weakness and seizures. Endo/Heme/Allergies: Negative for polydipsia. Psychiatric/Behavioral: Negative for hallucinations. Vitals see chart PHYSICAL EXAMINATION GENERAL: The patient is alert and oriented*3 HEENT: Nonicteric sclerae, non traumatic HEART: Regular rate and rhythm with no murmurs LUNGS: Clear to auscultation bilaterally ABDOMEN: No acute issues, non tender GENITAL, RECTAL: deferred SKIN: No rash NEUROLOGIC: NFND EXTREMITIES: No edema ASSESSMENT MURMUR, PREOP EVALUATION The setting of a fall, needing surgery Mechanical fall at presentation HISTORY OF CVA Previous history of right-sided residual weakness On Plavix CHRONIC KIDNEY DISEASE HYPERTENSION, DIABETES CORE MEASURES Pending OTHER MEDICAL PROBLEMS Hypothyroidism Osteoporosis Hypomagnesemia PLAN 06/08/2025 patient with underlying murmur here with a fall, cardiology consult for preop evaluation. Echocardiogram has been ordered and completed. Processing is ongoing. If no significant findings on echo, likely intermediate risk upcoming procedure. Patient has reasonable baseline functional capacity. Seen and examined 06/08/2025 at around 2 PM. 06/09/2025 Patient s/p surgery, doing well, no active cardiovascular issues, no perioperative issues noted as well. Appreciate surgery. Echocardiogram was within normal limits. Will follow along. Seen and examined 06/07/2025 at around 8 PM. ATTESTATION I was involved substantially in the care of this patient Number and complexity of problems addressed: 1 acute illness with systemic features Amount and or complexity of data Review of prior external note(s) from each unique source: 2+ Ordering of each unique test : 1 Review of the result(s) of each unique test: 2+ Assessment requiring an independent historian(s): No Independent interpretation of test performed by another MD/QCOLTONP/appropriate source (not separately reported) : No Discussion of management or test interpretation with external MD/QCOLTONP/appropriate source (not separately reported) : No Risk status (cardiac, billing related): Moderate Vitals/Labs Vital Signs Date Time Temp Pulse Resp B/P (MAP) Pulse Ox O2 Delivery O2 Flow Rate FiO2 06/09/25 20:00 98.1 87 17 109/52 96 Room Air 06/09/25 19:02 21 06/09/25 17:52 2.0 Laboratory Tests 06/09/25 04:17 Medications Current Medications Morphine Sulfate 4 mg ONCE STAT IVP; Start 06/08/25 at 09:03; Stop 06/08/25 at 10:00; Status DC Ondansetron HCl 4 mg ONCE STAT IVP Last administered on 06/08/25at 11:17; Start 06/08/25 at 09:03; Stop 06/08/25 at 09:07; Status DC Hydromorphone HCl 0.2 mg Q4H PRN IVP Last administered on 06/08/25at 11:18; Start 06/08/25 at 10:30; Stop 06/13/25 at 10:29 Acetaminophen 500 mg Q8H PO Last administered on 06/09/25at 17:43; Start 06/08/25 at 10:30; Stop 07/08/25 at 10:29 Multivitamins/ Minerals 10 ml/ Folic Acid 1 mg/ Thiamine HCl 100 mg/Sodium Chloride 1,010 ml @ 50 mls/hr Q24H IV Last administered on 06/09/25at 12:06; Start 06/08/25 at 10:30; Stop 06/11/25 at 06:41 Insulin Human Regular INSULIN SLIDING SCAL... ACHS SQ Last administered on 06/09/25at 20:44; Start 06/08/25 at 11:30; Stop 07/08/25 at 11:29 Dextrose 50 ml AD PRN IV; Start 06/08/25 at 10:30; Stop 07/08/25 at 10:29 Glucagon 1 mg AD PRN IM; Start 06/08/25 at 10:30; Stop 07/08/25 at 10:29 Ondansetron HCl 4 mg Q6H PRN IVP; Start 06/08/25 at 10:30; Stop 07/08/25 at 10:29 Albuterol 1 udvial Q6H PRN IH; Start 06/08/25 at 10:30; Stop 07/08/25 at 10:29 Famotidine 20 mg Q48H IV Last administered on 06/08/25at 21:10; Start 06/08/25 at 21:00; Stop 07/08/25 at 20:59 Hydralazine HCl 5 mg Q6H PRN IV; Start 06/08/25 at 10:30; Stop 07/08/25 at 10:29 Multivitamins Therapeutic 1 tab DAILY PO; Start 06/09/25 at 09:00; Stop 07/09/25 at 08:59 Polyethylene Glycol 17 gm DAILY PRN PO; Start 06/08/25 at 11:00; Stop 07/08/25 at 10:59 Magnesium Sulfate 50 ml @ 0 mls/hr PROTOCOL IV Last administered on 06/08/25at 11:17; Start 06/08/25 at 11:00; Stop 07/08/25 at 10:59 Fluticasone Propionate 2 SPRAYS DAILY NS; Start 06/09/25 at 09:00; Stop 07/09/25 at 08:59 Home Med (Cholecalciferol (Vitamin D3) 125MCG CAP) DAILY PO; Start 06/09/25 at 09:00; Stop 07/09/25 at 08:59 Levothyroxine Sodium 88 mcg SYN PO Last administered on 06/09/25at 06:29; Start 06/09/25 at 06:30; Stop 07/09/25 at 06:29 Lisinopril 10 mg BID PO Last administered on 06/09/25at 20:42; Start 06/08/25 at 21:00; Stop 07/08/25 at 20:59 Lidocaine HCl 100 mg STK-MED ONCE .ROUTE; Start 06/09/25 at 09:40; Stop 06/09/25 at 09:40; Status DC Ondansetron HCl 4 mg STK-MED ONCE .ROUTE; Start 06/09/25 at 09:40; Stop 06/09/25 at 09:40; Status DC Dexamethasone Sodium Phosphate 10 mg STK-MED ONCE .ROUTE; Start 06/09/25 at 09:40; Stop 06/09/25 at 09:40; Status DC Glycopyrrolate 1 mg STK-MED ONCE .ROUTE; Start 06/09/25 at 09:41; Stop 06/09/25 at 09:41; Status DC Propofol 200 mg STK-MED ONCE IV; Start 06/09/25 at 09:41; Stop 06/09/25 at 09:41; Status DC Neostigmine Methylsulfate 10 mg STK-MED ONCE IV; Start 06/09/25 at 09:41; Stop 06/09/25 at 09:41; Status DC Rocuronium [place] 50 mg STK-MED ONCE .ROUTE; Start 06/09/25 at 09:41; Stop 06/09/25 at 09:41; Status DC Fentanyl Citrate 100 mcg STK-MED ONCE .ROUTE; Start 06/09/25 at 09:41; Stop 06/09/25 at 09:42; Status DC Phenylephrine HCl 10 mg STK-MED ONCE IV; Start 06/09/25 at 09:43; Stop 06/09/25 at 09:43; Status DC Lidocaine/ Epinephrine 30 ml STK-MED ONCE IJ; Start 06/09/25 at 10:36; Stop 06/09/25 at 10:36; Status DC Fentanyl Citrate 100 mcg STK-MED ONCE .ROUTE; Start 06/09/25 at 10:48; Stop 06/09/25 at 10:49; Status DC Cefazolin Sodium 1 gm Q8H IVPB Last administered on 06/09/25at 17:43; Start 06/09/25 at 18:30; Stop 06/10/25 at 02:31 PREMA WHITE MD Jun 09, 2025 21:59
[2025-06-10] VITALS (10 sets, daily range): BP systolic 110–150; BP diastolic 50–62; PULSE 77–96; RESP 16–18; TEMP 97.6–98.5; O2SAT 89–98
[2025-06-10 08:01] LABS: CREATININE 1.0 mg/dL (0.5-1.0); GLOMERULAR FILTR. RATE CALC 54.0 mL/min (>90); GLUCOSE,RANDOM 159.0 mg/dL (70-105); SODIUM SERUM 137.0 mmol/L (136-145); UREA NITROGEN, BLOOD 18.0 mg/dL (7-18)
[2025-06-10 08:10] LABS: IMMATURE GRANULOCYTE ABSOLUTE 0.05 K/uL (0-1); NUCLEATED RED BLOOD CELLS 0.0 % (0.0-0.19); PLATELET COUNT (AUTO) 147 K/uL (130-400); RED BLOOD CELL COUNT(AUTO) 2.50 MIL/uL (4.00-5.50); RED CELL DISTRIBUTION WIDTH 12.4 % (11.0-15.5); WHITE BLOOD COUNT (AUTO) 9.3 K/uL (4.8-10.8)
--- NOTE | 2025-06-10 08:16 | CONS ---
ORTHOPEDIC CONSULTATION CHIEF COMPLAINT: Severe left hip pain. HISTORY OF PRESENT ILLNESS: This 89-year-old female was in her kitchen yesterday when she accidentally tripped and fell hard on her left side. She has not been able to put weight on the leg since. She had pain 10/. She was brought to the Emergency Room where she was diagnosed as having a comminuted intertrochanteric femur fracture on the left. The patient was admitted. I was called for consultation. PAST MEDICAL HISTORY: The patient has a history of hypertension, hypothyroidism, previous history of stroke, which unfortunately affected her right side and still does some. The patient is currently on Plavix. PHYSICAL EXAMINATION: GENERAL: A well-developed, adult female. Appears stated age of 89 years. She is alert, pleasant and cooperative during the exam. VITAL SIGNS: Today, the patient's temperature is 97.9 with a pulse of 82, respirations 17, blood pressure 133/63. EXTREMITIES: She is motor and sensory intact to the toes of her left foot with a palpable dorsal pedal pulse. There is a mild contusion over the greater trochanteric region of her left thigh. LABORATORY DATA: Her white count is 13.3 with hemoglobin of 13.6 and hematocrit of 41.6 and 248,000 platelets. Her sodium was 138, potassium 4.3, chloride of 105, and a blood sugar of 158. IMAGING STUDIES: Radiographs show a comminuted varus angulated shortened left intertrochanteric femur fracture. ASSESSMENT: Unstable left intertrochanteric femur fracture. PLAN: We are going to take this patient urgently to the operating room for open reduction and internal fixation with a [employer] InterTan nail and fluoroscopy. TID: [id number] RECEIPT: [id number]
[2025-06-10] MEDS ORDERED: COMPOUND IV REFRIGERATED 1 EACH IVSOLN MISC PRN (09:30)
[2025-06-10] MEDS: HYDROcodone/APAP 5/325 1 TAB TABLET PO PRN (16:22)
--- NOTE | 2025-06-10 20:25 | PN ---
[facility] PROGRESS NOTE Date of Service: Jun 10, 2025 Time of Service: 20:24 SUBJECTIVE: [ ] This is a frail 89-year-old female with history of hypertension, hypothyroidism, previous history of stroke about four years ago with residual right lower e xtremity and right upper extremity weakness, history of chronic outpatient therapy with Plavix who presented to the ER after a fall. Patient was in the kitchen today in her mobile when she accidentally tripped and fell. She landed on the left hip and since then, she has been having severe pain to the left hip/ IM nailing today 06/10 s/p IM nail of the left femur using the [employer] Intertan System and fluoroscopy.No issues reported REVIEW OF SYSTEMS CONSTITUTIONAL: reports having fall today with significant left hip pain NEUROLOGICAL: Denies headache, amaurosis fugax, motor weakness, sensory deficit, vertigo/spinning sensation, gait abnormalities, or tremors. ENT: No hearing loss, otalgia, otorrhea, rhinitis, rhinorrhea, hoarseness, or sore throat. CARDIOVASCULAR: reports having chronic murmur PULMONARY: Denies any shortness of breath, cough, phlegm/sputum, hemoptysis, pleuritic chest pain. SLEEP: Denies morning headaches, daytime somnolence or napping. Denies difficulty falling asleep, staying asleep, waking from sleep. Denies knowledge of snoring. GASTROINTESTINAL: Denies any type of dysphagia to either liquids or solids. Denies nausea, vomiting, pyrosis, early satiety, abdominal pain, diarrhea, constipation, or changes in stool consistency or caliber. Denies coffee-ground emesis, hematemesis, hematochezia, or melanotic stools. GENITOURINARY: Denies frequency, urgency, nocturia, hematuria or incontinence (Storage/Irritative symptoms.) Low urinary stream, straining to void, urinary intermittency or hesitancy, splitting of the voiding stream, terminal dribbling. ENDOCRINOLOGIC: Denies polyuria, polydipsia, polyphagia or heat/cold intolerances. HEMATOLOGIC: Denies thrombophilia/previous clots, or coagulopathy/bleeding disorders. ONCOLOGIC: Denies personal history of malignancy. DERMATOLOGIC: Denies rashes or pruritus. PSYCHIATRIC: Denies any suicidal or homicidal ideation. Denies hallucinations. PHYSICAL EXAM GENERAL APPEARANCE: The patient is awake, alert, and oriented, elderly and frail NEUROLOGICAL: Cranial nerves II-XII grossly intact. Motor is 5/5 in bilateral upper and lower extremities proximal to distal. No sensory deficits. HEENT: Face is symmetric. Pupils are equal and reactive. Extraocular movements are intact. NECK: Supple. No JVD. No thyromegaly. No submental, submandibular, pre- /postauricular, occipital or supraclavicular lymphadenopathy. CHEST: Normal chest expansion. No Telemetry. LUNGS: Absence of any rales, rhonchi or any wheezing. CARDIOVASCULAR: Regular. S1 and S2 normal. audible murmur noted, 3/6 involving the RUSB ABDOMEN: Soft, nontender, and nondistended. There is no rebound, voluntary guarding, or rigidity. : Deferred. No Denney. EXTREMITIES: Non-edematous and not cyanotic. His externally rotated and abducted, pain and tenderness to palpation of the left hip SKIN: No skin breakdown. Vital Signs (last 8hr) Date Time Temp Pulse Resp B/P (MAP) Pulse Ox O2 Delivery O2 Flow Rate FiO2 06/10/25 18:55 88 18 N/A Room Air 21 06/10/25 16:00 98.2 92 18 113/60 95 Room Air LABS: Laboratory: Test 06/10/25 19:41 06/10/25 07:40 06/09/25 19:37 06/09/25 04:17 Range/Units Whole Blood Glucose 187 H 70-110 MG/DL White Blood Count 9.3 4.8-10.8 K/uL Red Blood Count 2.50 L 4.00-5.50 MIL/uL Hemoglobin 8.1 L 12.0-16.0 g/dL Hematocrit 24.1 #L 36-48 % Mean Corpuscular Volume 96.4 79-99 fL Mean Corpuscular Hemoglobin 32.4 27.0-33.0 pg Mean Corpuscular Hemoglobin Concent 33.6 32.0-36.0 g/dL Red Cell Distribution Width 12.4 11.0-15.5 % Platelet Count 147 130-400 K/uL Mean Platelet Volume 11.5 H 7.5-10.5 fL Immature Granulocyte % (Auto) 0.5 0-1 % Neutrophils (%) (Auto) 72.5 40.0-77.0 % Lymphocytes (%) (Auto) 11.3 L 21.0-51.0 % Monocytes (%) (Auto) 14.3 H 3.0-13.0 % Eosinophils (%) (Auto) 0.8 0.0-8.0 % Basophils (%) (Auto) 0.6 0.0-5.0 % Neutrophils # (Auto) 6.7 1.8-7.7 K/uL Lymphocytes # (Auto) 1.1 1.0-4.8 K/uL Monocytes # (Auto) 1.3 H 0.1-1.0 K/uL Eosinophils # (Auto) 0.07 0.00-0.70 K/uL Basophils # (Auto) 0.06 0.00-0.20 K/uL Absolute Immature Granulocyte (auto 0.05 0-1 K/uL Nucleated Red Blood Cells 0.0 0.0-0.19 % Sodium Level 137 136-145 mmol/L Potassium Level 4.4 3.5-5.1 mmol/L Chloride Level 107 101-111 mmol/L Carbon Dioxide Level 26 21-32 mmol/L Blood Urea Nitrogen 18 7-18 mg/dL Creatinine 1.0 0.5-1.0 mg/dL Glomerular Filtration Rate Calc 54 >90 mL/min Random Glucose 159 H 70-105 mg/dL Total Calcium 7.9 L 8.5-10.1 mg/dL Bedside Glucose Comment Notified Nurse White Cell Morphology Comment See comments Magnesium Level 1.80 1.80-2.40 mg/dL Total Bilirubin 0.6 0.2-1.0 mg/dL Aspartate Amino Transf (AST/SGOT) 29 10-37 U/L Alanine Aminotransferase (ALT/SGPT) 23 12-78 U/L Alkaline Phosphatase 49 #L 50-136 U/L Total Protein 5.8 #L 6.0-8.3 g/dL Albumin 3.1 #L 3.5-5.0 g/dL Current Medications Medications (Trade) Dose Ordered Sig/Raegan Route PRN Reason Start Time Stop Time Status Last Admin Dose Admin Acetaminophen (TYLenol 500MG TAB) 500 mg Q8H PO 06/08/25 10:30 07/08/25 10:29 06/10/25 18:33 500 MG Acetaminophen/ Hydrocodone Bitart (NORco 5/325MG) 1 tab Q6H PRN PO MODERATE PAIN (4-6) 06/10/25 14:00 06/15/25 13:59 06/10/25 16:22 1 TAB Albuterol (DUOneb) 1 udvial Q6H PRN IH SHORTNESS OF BREATH 06/08/25 10:30 07/08/25 10:29 Cefazolin Sodium (ANCEF 1 gm vial) 1 gm Q8H IVPB 06/09/25 18:30 06/10/25 02:31 DC 06/10/25 02:36 1 GM Dextrose (D50w) 50 ml AD PRN IV HYPOGLYCEMIA PROTOCOL 06/08/25 10:30 07/08/25 10:29 Famotidine (Pepcid 20mg Vial) 20 mg Q48H IV 06/08/25 21:00 07/08/25 20:59 06/08/25 21:10 20 MG Fluticasone Propionate (FLOnase 50 mcg/ spray 16g bottle) 2 SPRAYS DAILY NS 06/09/25 09:00 07/09/25 08:59 Glucagon (Glucagon 1mg Kit) 1 mg AD PRN IM HYPOGLYCEMIA PROTOCOL 06/08/25 10:30 07/08/25 10:29 Home Med (Home Medication) (Cholecalciferol (Vitamin D3) 125MCG CAP) DAILY PO 06/09/25 09:00 07/09/25 08:59 Hydralazine HCl (APRESOLine 20MG INJ) 5 mg Q6H PRN IV ADMINISTER FOR SBP > 160 06/08/25 10:30 07/08/25 10:29 Hydromorphone HCl (DiLAUDid 0.5MG INJ) 0.2 mg Q4H PRN IVP SEVERE PAIN (7-10) 06/08/25 10:30 06/13/25 10:29 06/10/25 00:47 0.2 MG Insulin Human Regular (humuLIN R 100 UNIT/ML 3ML) INSULIN SLIDING SCAL... ACHS SQ 06/08/25 11:30 07/08/25 11:29 06/10/25 12:40 3 UNIT Levothyroxine Sodium (SYNTHroid 88MCG TAB) 88 mcg SYN PO 06/09/25 06:30 07/09/25 06:29 06/10/25 06:18 88 MCG Lisinopril (Prinivil 10mg) 10 mg BID PO 06/08/25 21:00 07/08/25 20:59 06/10/25 09:19 10 MG Magnesium Sulfate 50 ml @ 0 mls/hr PROTOCOL IV 06/08/25 11:00 07/08/25 10:59 06/08/25 11:17 25 MLS/HR Morphine Sulfate (morPHINE 4MG SYG) 4 mg ONCE STAT IVP 06/08/25 09:03 06/08/25 10:00 DC Multivitamins Therapeutic (Multivitamin Tablet) 1 tab DAILY PO 06/09/25 09:00 07/09/25 08:59 06/10/25 09:19 1 TAB Multivitamins/ Minerals 10 ml/ Folic Acid 1 mg/ Thiamine HCl 100 mg/Sodium Chloride 1,010 ml @ 50 mls/hr Q24H IV 06/08/25 10:30 06/11/25 06:41 06/10/25 12:37 50 MLS/HR Ondansetron HCl (zoFRAN 4MG INJ) 4 mg ONCE STAT IVP 06/08/25 09:03 06/08/25 09:07 DC 06/08/25 11:17 4 MG Ondansetron HCl (zoFRAN 4MG INJ) 4 mg Q6H PRN IVP NAUSEA/VOMITING 06/08/25 10:30 07/08/25 10:29 Polyethylene Glycol (MIRalax 3350 17 GM POWD.PACK) 17 gm DAILY PRN PO constipation 06/08/25 11:00 07/08/25 10:59 06/10/25 16:29 17 GM DIAGNOSTICS / RADIOLOGY: [ ] ASSESSMENT: Status post mechanical fall with comminuted minimally displaced left hip intertrochanteric fracture, POA Underweight with severe protein calorie malnutrition, POA Frailty/debility, POA Prior history of stroke with residual right-sided weakness, POA History of chronic antiplatelet therapy with Plavix as outpatient, POA Hypertension, POA Hypothyroidism, POA Osteoporosis, POA History of type 2 diabetes mellitus, POA CKD stage 3, POA Hypomagnesemia, POA Leukocytosis, POA Hx of cardiac murmur, POA PLAN: Patient will be admitted to medical-surgical floor under telemetry monitoring Patient was seen by Dr. Alvares with Orthopedics with tentative plans for orthopedic fixation of the left hip fracture for tomorrow Consultation with Dr. Kirby requested for preoperative cardiac optimization prior to surgery tomorrow 2D echocardiogram will be obtained We will start pain control with scheduled Tylenol, IV hydromorphone in case of severe pain, avoid any NSAID therapy on this patient due to patient being underweight, history of chronic Plavix use, to reduce risk of gastritis/gastric ulcer with GI bleed We will start patient on gentle hydration with banana bag at 50 mls/h Denney catheter will be placed due to urinary retention, urinalysis will be sent to rule out UTI Case management consultation will be requested for SNF versus rehab on discharge Patient will be placed on bedrest today Home medications will be reconciled and updated including antihypertensives, patient will be placed on sliding scale insulin a.c. and HS, electrolytes will be aggressively repleted Plavix will be placed on hold in anticipation of surgery tomorrow We will keep patient on SCDs for DVT prophylaxis, prophylaxis with Pepcid We will monitor closely for signs of bleeding, all labs will be repeated in the morning, we will anticipate hospitalization for at least 72 hours Prognosis: Guarded Plan of care was discussed with patient and niece at bedside, Joey Lu MD Advanced Care Planning: Which of the following were discussed: Hospice care: Yes __ No _x_ Therapeutic options: Yes _x_ No __ Advance directives: Yes _x_ No __ Other discussions: Discussed with who?: Patient Voluntary nature of this service was explained to the patient? Yes _x_ No __ Amount of time spent: 20 minutes JUAN KAPLAN MD Jun 10, 2025 20:25
[2025-06-11] VITALS (9 sets, daily range): BP systolic 99–146; BP diastolic 48–66; PULSE 64–114; RESP 16–20; TEMP 97.7–99.2; O2SAT 97–98
--- NOTE | 2025-06-11 13:00 | NUR ---
BTB BY INOCENTE.
--- NOTE | 2025-06-11 13:05 | NUR ---
WEATHERS CATH WEATHERS CATH REMOVED. PT TOLERATED WELL. DENIES ANY PAIN. DUE TO VOID 1904
--- NOTE | 2025-06-11 20:18 | NUR ---
unable to void freely, past due time pt has no urge to void ,does not feel pressure at suprapubic area bladder scanned,856 ml noted, catheterized, using sterile technique, collected at this time 900ml clear pale yellow urine tolerated procedure well pt requesting for cath to remain in place till morning when md makes rounds Addendum: 06/11/25 at 2021 by IZZY BEARDEN RN RN Amended: Links added.
--- NOTE | 2025-06-11 21:11 | PN ---
[facility] PROGRESS NOTE Date of Service: Jun 11, 2025 Time of Service: 21:11 SUBJECTIVE: [ ] This is a frail 89-year-old female with history of hypertension, hypothyroidism, previous history of stroke about four years ago with residual right lower e xtremity and right upper extremity weakness, history of chronic outpatient therapy with Plavix who presented to the ER after a fall. Patient was in the kitchen today in her mobile when she accidentally tripped and fell. She landed on the left hip and since then, she has been having severe pain to the left hip/ IM nailing today 06/10 s/p IM nail of the left femur using the [employer] Intertan System and fluoroscopy.No issues reported 06/11 s/p IM nail of the left femur using the [employer] Intertan System and fluoroscopy.No issues reported/pt/ot REVIEW OF SYSTEMS CONSTITUTIONAL: reports having fall today with significant left hip pain NEUROLOGICAL: Denies headache, amaurosis fugax, motor weakness, sensory deficit, vertigo/spinning sensation, gait abnormalities, or tremors. ENT: No hearing loss, otalgia, otorrhea, rhinitis, rhinorrhea, hoarseness, or sore throat. CARDIOVASCULAR: reports having chronic murmur PULMONARY: Denies any shortness of breath, cough, phlegm/sputum, hemoptysis, pleuritic chest pain. SLEEP: Denies morning headaches, daytime somnolence or napping. Denies difficulty falling asleep, staying asleep, waking from sleep. Denies knowledge of snoring. GASTROINTESTINAL: Denies any type of dysphagia to either liquids or solids. Denies nausea, vomiting, pyrosis, early satiety, abdominal pain, diarrhea, constipation, or changes in stool consistency or caliber. Denies coffee-ground emesis, hematemesis, hematochezia, or melanotic stools. GENITOURINARY: Denies frequency, urgency, nocturia, hematuria or incontinence (Storage/Irritative symptoms.) Low urinary stream, straining to void, urinary intermittency or hesitancy, splitting of the voiding stream, terminal dribbling. ENDOCRINOLOGIC: Denies polyuria, polydipsia, polyphagia or heat/cold intolerances. HEMATOLOGIC: Denies thrombophilia/previous clots, or coagulopathy/bleeding disorders. ONCOLOGIC: Denies personal history of malignancy. DERMATOLOGIC: Denies rashes or pruritus. PSYCHIATRIC: Denies any suicidal or homicidal ideation. Denies hallucinations. PHYSICAL EXAM GENERAL APPEARANCE: The patient is awake, alert, and oriented, elderly and frail NEUROLOGICAL: Cranial nerves II-XII grossly intact. Motor is 5/5 in bilateral upper and lower extremities proximal to distal. No sensory deficits. HEENT: Face is symmetric. Pupils are equal and reactive. Extraocular movements are intact. NECK: Supple. No JVD. No thyromegaly. No submental, submandibular, pre- /postauricular, occipital or supraclavicular lymphadenopathy. CHEST: Normal chest expansion. No Telemetry. LUNGS: Absence of any rales, rhonchi or any wheezing. CARDIOVASCULAR: Regular. S1 and S2 normal. audible murmur noted, 3/6 involving the RUSB ABDOMEN: Soft, nontender, and nondistended. There is no rebound, voluntary guarding, or rigidity. : Deferred. No Denney. EXTREMITIES: Non-edematous and not cyanotic. His externally rotated and abducted, pain and tenderness to palpation of the left hip SKIN: No skin breakdown. Vital Signs (last 8hr) Date Time Temp Pulse Resp B/P (MAP) Pulse Ox O2 Delivery O2 Flow Rate FiO2 06/11/25 16:00 97.7 100 18 127/66 97 Room Air LABS: Laboratory: Test 06/11/25 20:22 06/10/25 07:40 Range/Units Whole Blood Glucose 179 H 70-110 MG/DL White Blood Count 9.3 4.8-10.8 K/uL Red Blood Count 2.50 L 4.00-5.50 MIL/uL Hemoglobin 8.1 L 12.0-16.0 g/dL Hematocrit 24.1 #L 36-48 % Mean Corpuscular Volume 96.4 79-99 fL Mean Corpuscular Hemoglobin 32.4 27.0-33.0 pg Mean Corpuscular Hemoglobin Concent 33.6 32.0-36.0 g/dL Red Cell Distribution Width 12.4 11.0-15.5 % Platelet Count 147 130-400 K/uL Mean Platelet Volume 11.5 H 7.5-10.5 fL Immature Granulocyte % (Auto) 0.5 0-1 % Neutrophils (%) (Auto) 72.5 40.0-77.0 % Lymphocytes (%) (Auto) 11.3 L 21.0-51.0 % Monocytes (%) (Auto) 14.3 H 3.0-13.0 % Eosinophils (%) (Auto) 0.8 0.0-8.0 % Basophils (%) (Auto) 0.6 0.0-5.0 % Neutrophils # (Auto) 6.7 1.8-7.7 K/uL Lymphocytes # (Auto) 1.1 1.0-4.8 K/uL Monocytes # (Auto) 1.3 H 0.1-1.0 K/uL Eosinophils # (Auto) 0.07 0.00-0.70 K/uL Basophils # (Auto) 0.06 0.00-0.20 K/uL Absolute Immature Granulocyte (auto 0.05 0-1 K/uL Nucleated Red Blood Cells 0.0 0.0-0.19 % Sodium Level 137 136-145 mmol/L Potassium Level 4.4 3.5-5.1 mmol/L Chloride Level 107 101-111 mmol/L Carbon Dioxide Level 26 21-32 mmol/L Blood Urea Nitrogen 18 7-18 mg/dL Creatinine 1.0 0.5-1.0 mg/dL Glomerular Filtration Rate Calc 54 >90 mL/min Random Glucose 159 H 70-105 mg/dL Total Calcium 7.9 L 8.5-10.1 mg/dL Current Medications Medications (Trade) Dose Ordered Sig/Raegan Route PRN Reason Start Time Stop Time Status Last Admin Dose Admin Acetaminophen (TYLenol 500MG TAB) 500 mg Q8H PO 06/08/25 10:30 07/08/25 10:29 06/11/25 18:01 500 MG Acetaminophen/ Hydrocodone Bitart (NORco 5/325MG) 1 tab Q6H PRN PO MODERATE PAIN (4-6) 06/10/25 14:00 06/15/25 13:59 06/10/25 16:22 1 TAB Albuterol (DUOneb) 1 udvial Q6H PRN IH SHORTNESS OF BREATH 06/08/25 10:30 07/08/25 10:29 Cefazolin Sodium (ANCEF 1 gm vial) 1 gm Q8H IVPB 06/09/25 18:30 06/10/25 02:31 DC 06/10/25 02:36 1 GM Dextrose (D50w) 50 ml AD PRN IV HYPOGLYCEMIA PROTOCOL 06/08/25 10:30 07/08/25 10:29 Famotidine (Pepcid 20mg Vial) 20 mg Q48H IV 06/08/25 21:00 07/08/25 20:59 06/10/25 21:08 20 MG Fluticasone Propionate (FLOnase 50 mcg/ spray 16g bottle) 2 SPRAYS DAILY NS 06/09/25 09:00 07/09/25 08:59 Glucagon (Glucagon 1mg Kit) 1 mg AD PRN IM HYPOGLYCEMIA PROTOCOL 06/08/25 10:30 07/08/25 10:29 Home Med (Home Medication) (Cholecalciferol (Vitamin D3) 125MCG CAP) DAILY PO 06/09/25 09:00 07/09/25 08:59 Hydralazine HCl (APRESOLine 20MG INJ) 5 mg Q6H PRN IV ADMINISTER FOR SBP > 160 06/08/25 10:30 07/08/25 10:29 Hydromorphone HCl (DiLAUDid 0.5MG INJ) 0.2 mg Q4H PRN IVP SEVERE PAIN (7-10) 06/08/25 10:30 06/13/25 10:29 06/10/25 00:47 0.2 MG Insulin Human Regular (humuLIN R 100 UNIT/ML 3ML) INSULIN SLIDING SCAL... ACHS SQ 06/08/25 11:30 07/08/25 11:29 06/11/25 13:22 3 UNIT Levothyroxine Sodium (SYNTHroid 88MCG TAB) 88 mcg SYN PO 06/09/25 06:30 07/09/25 06:29 06/11/25 05:28 88 MCG Lisinopril (Prinivil 10mg) 10 mg BID PO 06/08/25 21:00 07/08/25 20:59 06/11/25 08:34 10 MG Magnesium Sulfate 50 ml @ 0 mls/hr PROTOCOL IV 06/08/25 11:00 07/08/25 10:59 06/08/25 11:17 25 MLS/HR Morphine Sulfate (morPHINE 4MG SYG) 4 mg ONCE STAT IVP 06/08/25 09:03 06/08/25 10:00 DC Multivitamins Therapeutic (Multivitamin Tablet) 1 tab DAILY PO 06/09/25 09:00 07/09/25 08:59 06/11/25 08:34 1 TAB Multivitamins/ Minerals 10 ml/ Folic Acid 1 mg/ Thiamine HCl 100 mg/Sodium Chloride 1,010 ml @ 50 mls/hr Q24H IV 06/08/25 10:30 06/11/25 06:41 DC 06/10/25 12:37 50 MLS/HR Ondansetron HCl (zoFRAN 4MG INJ) 4 mg ONCE STAT IVP 06/08/25 09:03 06/08/25 09:07 DC 06/08/25 11:17 4 MG Ondansetron HCl (zoFRAN 4MG INJ) 4 mg Q6H PRN IVP NAUSEA/VOMITING 06/08/25 10:30 07/08/25 10:29 Polyethylene Glycol (MIRalax 3350 17 GM POWD.PACK) 17 gm DAILY PRN PO constipation 06/08/25 11:00 07/08/25 10:59 06/10/25 16:29 17 GM DIAGNOSTICS / RADIOLOGY: [ ] ASSESSMENT: Status post mechanical fall with comminuted minimally displaced left hip intertrochanteric fracture, POA Underweight with severe protein calorie malnutrition, POA Frailty/debility, POA Prior history of stroke with residual right-sided weakness, POA History of chronic antiplatelet therapy with Plavix as outpatient, POA Hypertension, POA Hypothyroidism, POA Osteoporosis, POA History of type 2 diabetes mellitus, POA CKD stage 3, POA Hypomagnesemia, POA Leukocytosis, POA Hx of cardiac murmur, POA PLAN: Patient will be admitted to medical-surgical floor under telemetry monitoring Patient was seen by Dr. Alvares with Orthopedics with tentative plans for orthopedic fixation of the left hip fracture for tomorrow Consultation with Dr. Kirby requested for preoperative cardiac optimization prior to surgery tomorrow 2D echocardiogram will be obtained We will start pain control with scheduled Tylenol, IV hydromorphone in case of severe pain, avoid any NSAID therapy on this patient due to patient being underweight, history of chronic Plavix use, to reduce risk of gastritis/gastric ulcer with GI bleed We will start patient on gentle hydration with banana bag at 50 mls/h Denney catheter will be placed due to urinary retention, urinalysis will be sent to rule out UTI Case management consultation will be requested for SNF versus rehab on discharge Patient will be placed on bedrest today Home medications will be reconciled and updated including antihypertensives, patient will be placed on sliding scale insulin a.c. and HS, electrolytes will be aggressively repleted Plavix will be placed on hold in anticipation of surgery tomorrow We will keep patient on SCDs for DVT prophylaxis, prophylaxis with Pepcid We will monitor closely for signs of bleeding, all labs will be repeated in the morning, we will anticipate hospitalization for at least 72 hours Prognosis: Guarded Plan of care was discussed with patient and niece at bedside, Joey Lu MD Advanced Care Planning: Which of the following were discussed: Hospice care: Yes __ No _x_ Therapeutic options: Yes _x_ No __ Advance directives: Yes _x_ No __ Other discussions: Discussed with who?: Patient Voluntary nature of this service was explained to the patient? Yes _x_ No __ Amount of time spent: 20 minutes JUAN KAPLAN MD Jun 11, 2025 21:11
[2025-06-12] VITALS: BP 131/67; PULSE 87; RESP 18; TEMP 98
--- NOTE | 2025-06-12 | PN ---
CARDIOLOGY Reason for consult: Preop evaluation HPI/story at presentation: This is a pleasant 89-year-old female with past medical history present with complaints of a fall, mechanical and is being evaluated for surgery. Cardiology was consulted for further evaluation and management. Past medical history: See below Allergies, Meds See chart Review of systems Review of Systems Constitutional: Negative for chills and fever. HENT: Negative for ear discharge and ear pain. Eyes: Negative for photophobia and discharge. Respiratory: Negative for cough, sputum production and stridor. Cardiovascular: Negative for chest pain and palpitations. Gastrointestinal: Negative for diarrhea and vomiting. Genitourinary: Negative for frequency. Musculoskeletal: Negative for myalgias. Skin: Negative for rash. Neurological: Negative for focal weakness and seizures. Endo/Heme/Allergies: Negative for polydipsia. Psychiatric/Behavioral: Negative for hallucinations. Vitals see chart PHYSICAL EXAMINATION GENERAL: The patient is alert and oriented*3 HEENT: Nonicteric sclerae, non traumatic HEART: Regular rate and rhythm with no murmurs LUNGS: Clear to auscultation bilaterally ABDOMEN: No acute issues, non tender GENITAL, RECTAL: deferred SKIN: No rash NEUROLOGIC: NFND EXTREMITIES: No edema ASSESSMENT MURMUR, PREOP EVALUATION The setting of a fall, needing surgery Mechanical fall at presentation HISTORY OF CVA Previous history of right-sided residual weakness On Plavix CHRONIC KIDNEY DISEASE HYPERTENSION, DIABETES CORE MEASURES Pending OTHER MEDICAL PROBLEMS Hypothyroidism Osteoporosis Hypomagnesemia PLAN 06/08/2025 patient with underlying murmur here with a fall, cardiology consult for preop evaluation. Echocardiogram has been ordered and completed. Proces sing is ongoing. If no significant findings on echo, likely intermediate risk upcoming procedure. Patient has reasonable baseline functional capacity. Seen and examined 06/08/2025 at around 2 PM. 06/09/2025 Patient s/p surgery, doing well, no active cardiovascular issues, no perioperative issues noted as well. Appreciate surgery. Echocardiogram was within normal limits. Will follow along. Seen and examined 06/07/2025 at around 8 PM. 06/11/2025 Doing well postsurgery, no active cardiovascular symptoms. Will follow peripherally, please call us if needed. Seen and examined 06/11/2025 at around 8 PM. ATTESTATION I was involved substantially in the care of this patient Number and complexity of problems addressed: 1 acute illness with systemic features Amount and or complexity of data Review of prior external note(s) from each unique source: 2+ Ordering of each unique test : 1 Review of the result(s) of each unique test: 2+ Assessment requiring an independent historian(s): No Independent interpretation of test performed by another MD/QHCP/appropriate source (not separately reported) : No Discussion of management or test interpretation with external MD/QHCP/appropriate source (not separately reported) : No Risk status (cardiac, billing related): Moderate Vitals/Labs Vital Signs Date Time Temp Pulse Resp B/P (MAP) Pulse Ox O2 Delivery O2 Flow Rate FiO2 06/11/25 20:00 98.1 86 20 124/64 98 Room Air 06/11/25 19:45 0 21 Medications Current Medications Morphine Sulfate 4 mg ONCE STAT IVP; Start 06/08/25 at 09:03; Stop 06/08/25 at 10:00; Status DC Ondansetron HCl 4 mg ONCE STAT IVP Last administered on 06/08/25at 11:17; Start 06/08/25 at 09:03; Stop 06/08/25 at 09:07; Status DC Hydromorphone HCl 0.2 mg Q4H PRN IVP Last administered on 06/10/25at 00:47; Start 06/08/25 at 10:30; Stop 06/13/25 at 10:29 Acetaminophen 500 mg Q8H PO Last administered on 06/11/25at 18:01; Start 06/08/25 at 10:30; Stop 07/08/25 at 10:29 Multivitamins/ Minerals 10 ml/ Folic Acid 1 mg/ Thiamine HCl 100 mg/Sodium Chloride 1,010 ml @ 50 mls/hr Q24H IV Last administered on 06/10/25at 12:37; Start 06/08/25 at 10:30; Stop 06/11/25 at 06:41; Status DC Insulin Human Regular INSULIN SLIDING SCAL... ACHS SQ Last administered on 06/11/25at 21:19; Start 06/08/25 at 11:30; Stop 07/08/25 at 11:29 Dextrose 50 ml AD PRN IV; Start 06/08/25 at 10:30; Stop 07/08/25 at 10:29 Glucagon 1 mg AD PRN IM; Start 06/08/25 at 10:30; Stop 07/08/25 at 10:29 Ondansetron HCl 4 mg Q6H PRN IVP; Start 06/08/25 at 10:30; Stop 07/08/25 at 10:29 Albuterol 1 udvial Q6H PRN IH; Start 06/08/25 at 10:30; Stop 07/08/25 at 10:29 Famotidine 20 mg Q48H IV Last administered on 06/10/25at 21:08; Start 06/08/25 at 21:00; Stop 07/08/25 at 20:59 Hydralazine HCl 5 mg Q6H PRN IV; Start 06/08/25 at 10:30; Stop 07/08/25 at 10:29 Multivitamins Therapeutic 1 tab DAILY PO Last administered on 06/11/25at 08:34; Start 06/09/25 at 09:00; Stop 07/09/25 at 08:59 Polyethylene Glycol 17 gm DAILY PRN PO Last administered on 06/10/25at 16:29; Start 06/08/25 at 11:00; Stop 07/08/25 at 10:59 Magnesium Sulfate 50 ml @ 0 mls/hr PROTOCOL IV Last administered on 06/08/25at 11:17; Start 06/08/25 at 11:00; Stop 07/08/25 at 10:59 Fluticasone Propionate 2 SPRAYS DAILY NS; Start 06/09/25 at 09:00; Stop 07/09/25 at 08:59 Home Med (Cholecalciferol (Vitamin D3) 125MCG CAP) DAILY PO; Start 06/09/25 at 09:00; Stop 07/09/25 at 08:59 Levothyroxine Sodium 88 mcg SYN PO Last administered on 06/11/25at 05:28; Start 06/09/25 at 06:30; Stop 07/09/25 at 06:29 Lisinopril 10 mg BID PO Last administered on 06/11/25at 21:19; Start 06/08/25 at 21:00; Stop 07/08/25 at 20:59 Lidocaine HCl 100 mg STK-MED ONCE .ROUTE; Start 06/09/25 at 09:40; Stop 06/09/25 at 09:40; Status DC Ondansetron HCl 4 mg STK-MED ONCE .ROUTE; Start 06/09/25 at 09:40; Stop 06/09/25 at 09:40; Status DC Dexamethasone Sodium Phosphate 10 mg STK-MED ONCE .ROUTE; Start 06/09/25 at 09:40; Stop 06/09/25 at 09:40; Status DC Glycopyrrolate 1 mg STK-MED ONCE .ROUTE; Start 06/09/25 at 09:41; Stop 06/09/25 at 09:41; Status DC Propofol 200 mg STK-MED ONCE IV; Start 06/09/25 at 09:41; Stop 06/09/25 at 09:41; Status DC Neostigmine Methylsulfate 10 mg STK-MED ONCE IV; Start 06/09/25 at 09:41; Stop 06/09/25 at 09:41; Status DC Rocuronium Henry 50 mg STK-MED ONCE .ROUTE; Start 06/09/25 at 09:41; Stop 06/09/25 at 09:41; Status DC Fentanyl Citrate 100 mcg STK-MED ONCE .ROUTE; Start 06/09/25 at 09:41; Stop 06/09/25 at 09:42; Status DC Phenylephrine HCl 10 mg STK-MED ONCE IV; Start 06/09/25 at 09:43; Stop 06/09/25 at 09:43; Status DC Lidocaine/ Epinephrine 30 ml STK-MED ONCE IJ; Start 06/09/25 at 10:36; Stop 06/09/25 at 10:36; Status DC Fentanyl Citrate 100 mcg STK-MED ONCE .ROUTE; Start 06/09/25 at 10:48; Stop 06/09/25 at 10:49; Status DC Cefazolin Sodium 1 gm Q8H IVPB Last administered on 06/10/25at 02:36; Start 06/09/25 at 18:30; Stop 06/10/25 at 02:31; Status DC Acetaminophen/ Hydrocodone Bitart 1 tab Q6H PRN PO Last administered on 06/11at 23:49; Start 06/10/25 at 14:00; Stop 06/15/25 at 13:59 Lactulose 20 gm BID PRN PO; Start 06/12/25 at 00:00; Stop 07/12/25 at 00:00 PREMA WHITE MD Jun 12, 2025 00:00
[2025-06-12] MEDS: LACTULOSE 20 GM/30 ML UDCUP PO PRN (00:09)
[2025-06-12 04:00] VITALS: BP 147/79; PULSE 91; RESP 20; TEMP 97.3
[2025-06-12 08:00] VITALS: BP 156/74; PULSE 93; RESP 18; TEMP 97.5
[2025-06-12 09:20] VITALS: O2SAT 99
[2025-06-12 12:40] VITALS: BP 116/57; PULSE 101; RESP 18; TEMP 98.4
--- NOTE | 2025-06-12 14:40 | NUR ---
DISCHARGE DISCHARGE ORDERS FOR PATIENT TO BE DISCHARGED AND TRANSFERRED TO [facility] OBTAINED. DISCHARGE INSTRUCTIONS AND DOCUMENTATION GIVEN TO PATIENT AT BEDSIDE. VOICED UNDERSTANDING. IV DISCONTINUED, CATHETER INTACT, NO S/S OF INFECTION NOTED TO SITE. PATIENT TOLERATED WELL. BANDS REMOVED PRIOR TO DISCHARGE 1430 REPORT GIVEN TO LONA GORDILLO. PROVIDED MD'S ORDERS AND RECOMMENDATIONS ALONG WITH PATIENT'S CONDITION. VOICED UNDERSTANDING. PENDING ARRIVAL FOR FACILITY TRANSPORT.
--- NOTE | 2025-06-12 15:10 | NUR ---
DISCHARGE 1510 PATIENT LEFT VIA WHEELCHAIR, ACCOMPANIED BY FACILITY WRAPPING CLERK. NO S/S OF DISTRESS NOTED.
--- NOTE | 2025-06-12 15:28 | DS ---
Discharge Summary Hospital Course Summary: his is a frail 89-year-old female with history of hypertension, hypothyroidism, previous history of stroke about four years ago with residual right lower extremity and right upper extremity weakness, history of chronic outpatient therapy with Plavix who presented to the ER after a fall. Patient was in the [place] today in her mobile when she accidentally tripped and fell. She landed on the left hip and since then, she has been having severe pain to the left hip. Pain is 10/10 in severity with any movement. Patient does not use a cane or walker to ambulate at home. She lives by herself and her niece checks on her frequently. She denies any history of [place]. She reports having history of mild murmur which has been followed by her PCP as outpatient. She denies any smoking or alcohol consumption. She last took Plavix yesterday. She has been taking Plavix since her stroke. She denies taking aspirin therapy as outpatient. On presentation to the hospital, patient was afebrile with T-max of 97.9 F, heart rate of 102, blood pressure of 152/78. Underwent further evaluation with CT of the pelvis which showed comminuted minimally displaced left intertrochanteric fracture. Without contrast showed no acute intracranial hemorrhage with chronic small- vessel ischemic disease. Patient will be admitted for further management of left hip fracture. Consultation with Dr. Alvares with Orthopedics has been requested. Patient will undergo cardiac optimization prior to surgery. Discussed with patient and family that she will need SNF versus rehab on discharge. After risk stratification by cardiology she succesfully underwent surgery and was discahrged to SNF in a stable condition. Piece Dyer(s): Orthopedicas and cardiology Procedure(s): Hip surgery Assessment/Plan: ASSESSMENT: Status post mechanical fall with comminuted minimally displaced left hip intertrochanteric fracture, POA Underweight with severe protein calorie malnutrition, POA Frailty/debility, POA Prior history of stroke with residual right-sided weakness, POA History of chronic antiplatelet therapy with Plavix as outpatient, POA Hypertension, POA Hypothyroidism, POA Osteoporosis, POA History of type 2 diabetes mellitus, POA CKD stage 3, POA Hypomagnesemia, POA Leukocytosis, POA Hx of cardiac murmur, POA PLAN: Patient will be admitted to medical-surgical floor under telemetry monitoring Patient was seen by Dr. Alvares with Orthopedics with tentative plans for orthopedic fixation of the left hip fracture for tomorrow Consultation with Dr. Kirby requested for preoperative cardiac optimization prior to surgery tomorrow 2D echocardiogram will be obtained We will start pain control with scheduled Tylenol, IV hydromorphone in case of severe pain, avoid any NSAID therapy on this patient due to patient being underweight, history of chronic Plavix use, to reduce risk of gastritis/gastric ulcer with GI bleed We will start patient on gentle hydration with banana bag at 50 mls/h Denney catheter will be placed due to urinary retention, urinalysis will be sent to rule out UTI Case management consultation will be requested for SNF versus rehab on discharge Patient will be placed on bedrest today Home medications will be reconciled and updated including antihypertensives, patient will be placed on sliding scale insulin a.c. and HS, electrolytes will be aggressively repleted Plavix will be placed on hold in anticipation of surgery tomorrow We will keep patient on SCDs for DVT prophylaxis, prophylaxis with Pepcid We will monitor closely for signs of bleeding, all labs will be repeated in the morning, we will anticipate hospitalization for at least 72 hours Prognosis: Guarded Plan of care was discussed with patient and niece at bedside, Joey Lu MD Advanced Care Planning: Which of the following were discussed: Hospice care: Yes __ No _x_ Therapeutic options: Yes _x_ No __ Advance directives: Yes _x_ No __ Other discussions: Discussed with who?: Patient Voluntary nature of this service was explained to the patient? Yes _x_ No __ Amount of time spent: 20 minutes Home Medications: Reported Medications Cholecalciferol (Vitamin D3) (Vitamin D3) 125 Mcg (5000 Unit) Capsule, 1 CAP PO DAILY for 30 Days, #30 CAP 0 Refills 06/08/25 Clopidogrel Bisulfate (Clopidogrel) 75 Mg Tablet, 75 MG PO DAILY, TAB 06/08/25 Fluticasone Propionate (Flonase Nasal [place]) 50 Mcg/Actuation [place], 2 SPRAY NS DAILY, #16 GM 0 Refills 06/08/25 Empagliflozin (Jardiance) 10 Mg Tablet, 1 TAB PO DAILY for 30 Days, #30 TAB 0 Refills 06/08/25 Lisinopril (Lisinopril) 20 Mg Tablet, 25 MG PO DAILY, TAB 06/08/25 Levothyroxine Sodium (Levothyroxine) 88 Mcg Capsule, 1 CAP PO DAILY for 30 Days, #30 CAP 0 Refills 06/08/25 Time spent arranging discharge: 31-60 minutes JUAN KAPLAN MD Jun 12, 2025 15:28
== END 2025-06-12 15:07 | DRG 480 ==
LOC: EDBD 08:21 → EDH 08:21 → EDHIP 10:00 → 3AH 11:45
PROVIDERS: ADMIT Internal Medicine; ATTEND Internal Medicine
PROC: 3E0T3BZ Introduction of Anesthetic Agent into Peripheral Nerves and Plexi, Percutaneous Approach (ICD-10-PCS; 2025-06-09)
PROC: 0QS704Z Reposition Left Upper Femur with Internal Fixation Device, Open Approach (ICD-10-PCS; principal; 2025-06-09 09:00)
DX: S72.142A Displaced intertrochanteric fracture of left femur, initial encounter for closed fracture (principal); E43 Unspecified severe protein-calorie malnutrition; I69.351 Hemiplegia and hemiparesis following cerebral infarction affecting right dominant side; E03.9 Hypothyroidism, unspecified; E11.22 Type 2 diabetes mellitus with diabetic chronic kidney disease; D72.829 Elevated white blood cell count, unspecified; Z79.02 Long term (current) use of antithrombotics/antiplatelets; I12.9 Hypertensive chronic kidney disease with stage 1 through stage 4 chronic kidney disease, or unspecified chronic kidney disease; N18.30 Chronic kidney disease, stage 3 unspecified; Z68.1 Body mass index [BMI] 19.9 or less, adult; E83.42 Hypomagnesemia; M81.0 Age-related osteoporosis without current pathological fracture; R54 Age-related physical debility; W01.0XXA Fall on same level from slipping, tripping and stumbling without subsequent striking against object, initial encounter; Z90.710 Acquired absence of both cervix and uterus; Y93.89 Activity, other specified; Y92.89 Other specified places as the place of occurrence of the external cause; Y99.8 Other external cause status
CPT/HCPCS: 36415; 70450; 71045; 72192; 73502; 73503; 80048; 80053; 80076; 81001; 82550; 82948; 83036; 83735; 83880; 84443; 84484; 85025; 85610; 85730; 86850; 86900; 86901; 93005; 93306; 93356; 94664; 99285; G0378; J0690; J1100; J1171; J1815; J2003; J2371; J2405; J2704; J2710; J3010; J3411; J3475; J3490; J7030; A4216; A4222; A4223; A4649; A4930; A6223; C1713; C1776; J1308